=== PATIENT | female | born 1970 | race Caucasian/White ===

== ENCOUNTER → 2018-03-13 08:13 | Outpatient (CLI) | payer BC, SELFPAY ==
--- NOTE | 2018-03-13 08:15 | MM_ITS ---
. MM Dig screening mamm BI w/CAD CAD Screening ORDERING PHYSICIAN : Pedro Mendoza MD PATIENT AGE: 48 years GENDER: Female HISTORY no hormones. No new complaints. Noncontributory family history. COMPARISON mammogram studies January 2014 and August 2013..: TECHNIQUE: Standard CC and MLO images were obtained. R2 CAD reviewed. FINDINGS: Low-density breast with generalized fatty replacement and minimal residual fibroglandular elements bilaterally. No significant change since prior studies. No dominant mass nor suspicious calcifications.. CAD computer review highlights no areas of concern either. A few benign scattered calcifications towards upper-outer quadrant right breast with some ring minor asymmetric fibroglandular elements upper outer quadrant bilaterally again noted and actually have shown slight regression even since 2012 IMPRESSION: Low-density breast with no areas of concern. Bilateral follow-up in one year recommended. BI-RADS Category: 1 Negative RECOMMENDED FOLLOW-UP: 1YR - 1 YEAR FOLLOW-UP (A letter has been sent to the patient regarding results of the study.)
== END ==
PROVIDERS: Family Provider Family Medicine; PCP Family Medicine; Visit Provider Obstetrics & Gynecology
DX: Z12.31 Encounter for screening mammogram for malignant neoplasm of breast (principal)
CPT/HCPCS: 77067

== ENCOUNTER → 2019-03-16 09:08 | Outpatient (CLI) | payer BC, SELFPAY ==
--- NOTE | 2019-03-16 09:30 | MM_ITS ---
MM Dig screening mamm BI w/CAD ORDERING PHYSICIAN : Omayra Miller APRN PATIENT AGE: 49 years GENDER: Female COMPARISON: January 2014, March 2018, August 2013, INDICATION: Routine SCREENING. No hormones. No new complaints. Noncontributory family history TECHNIQUE: Standard CC and MLO images were obtained. R2 CAD reviewed. FINDINGS: Minimal residual fibroglandular elements at the deep upper outer quadrant both right and left breast. No dominant or suspicious mass. No suspicious calcifications. No significant new findings Bilateral follow-up in one year the adequate. . IMPRESSION: Stable bilateral mammogram with no significant new findings. Low-density breast BI-RADS Category: 1 Negative RECOMMENDED FOLLOW-UP: 1YR 1 YEAR FOLLOW-UP (A letter has been sent to the patient regarding results of the study.)
== END ==
PROVIDERS: PCP Nurse Practitioner Family; Visit Provider Nurse Practitioner Family
DX: Z12.31 Encounter for screening mammogram for malignant neoplasm of breast (principal)
CPT/HCPCS: 77067

== ENCOUNTER → 2020-11-24 15:54 | Outpatient (CLI) | payer OTHER, SELFPAY ==
[2020-11-26 10:49] LABS: Covid-19 Nasal PCR Sendout P&C NEGATIVE
== END ==
PROVIDERS: PCP Nurse Practitioner Family; Visit Provider Family Medicine
DX: Z20.822 Contact with and (suspected) exposure to COVID-19 (principal)
CPT/HCPCS: U0004

== ENCOUNTER → 2020-11-29 11:38 | Outpatient (CLI) | payer OTHER, SELFPAY ==
[2020-11-30 11:55] LABS: Covid-19 Nasal PCR Sendout P&C Negative
== END ==
PROVIDERS: PCP Family Medicine; Visit Provider Family Medicine
DX: Z20.822 Contact with and (suspected) exposure to COVID-19 (principal)
CPT/HCPCS: U0004

== ENCOUNTER 2022-02-16 18:35 | Observation (INO) | payer OTHER, SELFPAY ==
[2022-02-16] VITALS (9 sets, daily range): BP systolic 101–146; BP diastolic 59–92; PULSE 57–80; RESP 11–18; TEMP 36.6–37; O2SAT 93–98; BMI 32.9; BMI 35.0; BMI 33.9
--- NOTE | 2022-02-16 18:30 | ECG_ITS ---
APPROVED REPORT Exam: Resting ECG HR:90 bpm ECG Measurements Heart Rate 90 AXES WV 141 P 50 QRSd 85 QRS 42 QT 356 T 40 QTc 403 Conclusion SINUS RHYTHM POSSIBLE LEFT ATRIAL ENLARGEMENT [-0.1mV P-WAVE IN V1/V2] LOW QRS VOLTAGE IN PRECORDIAL LEADS [QRS DEFLECTION < 1.0 mV IN CHEST LEADS] BORDERLINE ECG UNCONFIRMED REPORT Electronically signed by : Michael Yanez MD 02/17/2022 08:09:30
--- NOTE | 2022-02-16 18:43 | XR_ITS ---
PROCEDURE INFORMATION: Exam: XR Chest Exam date and time: 02/16/2022 6:57 PM Age: 51 years old Clinical indication: Sternal or substernal pain; Additional info: Chest pain TECHNIQUE: Imaging protocol: XR of the chest. Views: 1 view. COMPARISON: No relevant prior studies available. FINDINGS: Lungs: Unremarkable. No consolidation. Pleural spaces: Unremarkable. No pleural effusion. No pneumothorax. Heart/Mediastinum: Unremarkable. No cardiomegaly. Bones/joints: Unremarkable. IMPRESSION: No acute findings.
[2022-02-16 18:50] LABS: Basophils # 0.2 K/mm3 (0-0.2); Eosinophils # 0.2 K/mm3 (0.0-0.4); Eosinophils % 2.3 % (0.1-12.0); Hematocrit 43.7 % (37.0-47.0); Lymphocytes % 31.9 % (10-50); Mean Corpuscular Hemoglobin 31.1 pg (27.0-31.2); Mean Corpuscular Volume 97.1 fl (81-99); Mean Platelet Volume 9.3 fl (7.4-10.4); Monocytes # 0.3 K/mm3 (0.1-1.0); Monocytes % 4.8 % (1.7-9.3); Neutrophils # 3.7 K/mm3 (1.8-7.8); Platelet Count 215 K/mm3 (142-424); Red Cell Distribution Width 13.8 % (11.5-17.5); White Blood Count 6.4 K/mm3 (4.8-10.8)
[2022-02-16 18:58] LABS: Anion Gap 10.5 mEq/L (5-15); Blood Urea Nitrogen 16 mg/dl (7-17); Calcium 9.2 mg/dl (8.4-10.2); Carbon Dioxide 26 mmol/L (22.0-30.0); Chloride 107 mmol/L (98-107); Creatinine Clearance Estimated 106 mL/min (50-200); Estimated Glomerular Filt Rate 65 ml/min (>60); GFR (African American) 79 ML/MIN (>60); Glucose 103 mg/dl (74-100); Potassium 3.5 mmoL/L (3.5-5.1); Sodium 140 mmol/L (136-145)
--- NOTE | 2022-02-16 19:15 | HMH.EDCP ---
ED Disposition Condition on Discharge: Good - Critical Care Critical Care Time: No <Danielito Kim - Last Filed: 02/16/22 19:43> <Blake Sena - Last Filed: 02/16/22 21:44> Clinical Impression: Nonspecific chest pain, Anxiety, Obesity (BMI 30.0-34.9), Tobacco use Disposition: Admitted as Observation Instructions: DI for Atypical Chest Pain Referrals: Omayra Miller APRN [Primary Care Provider] - Attestation: On 02/16/22, the high probability of a clinically significant, sudden or life threatening deterioration of the following system(s) required my full and direct attention, intervention and personal management. The time I documented below is in addition to time spent performing reported procedures but includes the following listed in this critical care notation. Medical Decision Making - Medical Records Medical records reviewed: Yes: I reviewed the patient's medical records. - Dav Inquiry Pt receiving controlled substance: No - Lab Data Result diagrams: 02/16/22 18:40 02/16/22 18:40 - Radiology Data #1 Image(s): Chest Image Reviewed: Yes I reviewed the patient's radiology results, Yes I reviewed the patient's radiology image, Yes I have reviewed radiologist's interpretation Preliminary Findings: Normal/NAD - ECG Data Tracing #1 I reviewed this ECG and interpreted as documented below: ECG initial impression date: 02/16/22 ECG initial impression time: 18:30 - Reevaluation(s) Time: 19:44 - CHENG Score for Non-Stemi Age of Patient: 50-59 years old Heart Rate: 70-89 bpm Systolic Blood Pressure: 140-159 mmHg Serum Creatinine: <0.40 mg/dl CHF Killip Class: I-No CHF Other Risk Factors: None Non-Stemi Risk Score: 75 Risk Stratification: 1-108 = Low Risk <Danielito Kim - Last Filed: 02/16/22 19:43> - Lab Data Lab results reviewed: Yes: I reviewed the patient's lab results. Result diagrams: 02/16/22 18:40 02/16/22 18:40 - Physician Consults Physician Consulted: emerson Reason -: Admission <Blake Sena - Last Filed: 02/16/22 21:44> Vital Signs: 02/16/22 18:35 02/16/22 20:18 04/15/22 20:30 Temperature 98.6 F Temperature Source Oral Pulse Rate 57 L 70 Pulse Rate [Radial] 80 Respiratory Rate 16 16 15 Blood Pressure 111/62 122/70 Blood Pressure [Right Arm] 146/92 H Blood Pressure Mean 85 Blood Pressure Mean [Right Arm] 110 Blood Pressure Position [Right Arm] Sitting 02 Sat by Pulse Oximetry 98 93 L 97 Oxygen Delivery Method Room Air Room Air Room Air 02/16/22 21:00 Temperature Temperature Source Pulse Rate 63 Pulse Rate [Radial] Respiratory Rate 16 Blood Pressure 142/86 H Blood Pressure [Right Arm] Blood Pressure Mean 104 Blood Pressure Mean [Right Arm] Blood Pressure Position [Right Arm] 02 Sat by Pulse Oximetry 94 L Oxygen Delivery Method Room Air - Lab Data Lab Results 02/16/22 18:40: WBC 6.4, RBC 4.50, Hgb 14.0, Hct 43.7, MCV 97.1, MCH 31.1, MCHC 32.0, RDW 13.8, Plt Count 215, MPV 9.3, Neut % (Auto) 58.0, Lymph % (Auto) 31.9, [place] % (Auto) 4.8, Eos % (Auto) 2.3, Baso % (Auto) 3.0 H, Neut # (Auto) 3.7, Lymph # (Auto) 2.0, [place] # (Auto) 0.3, Eos # (Auto) 0.2, Baso # (Auto) 0.2 02/16/22 18:40: Sodium 140, Potassium 3.5, Chloride 107, Carbon Dioxide 26, Anion Gap 10.5, BUN 16, Creatinine 0.90, Estimated Creat Clear 106, Estimated GFR 65, Est GFR ( Amer) 79, Glucose 103 H, Calcium 9.2, Troponin I < 0.01 Orders (Tests/Meds): ED MEDICATIONS Discontinued Medications Generic Name Dose Route Start Last Admin Trade Name Freq PRN Reason Stop Dose Admin Aspirin 324 mg 02/16/22 18:43 02/16/22 18:44 Aspirin 81mg Chewable Tablet PO 02/16/22 18:44 324 mg ONCE ONE Administration Morphine Sulfate 4 mg 02/16/22 19:18 02/16/22 19:21 Morphine 4mg/Ml Syringe IV 02/16/22 19:19 4 mg ONCE ONE Administration Nitroglycerin 0.4 mg 02/16/22 21:09 02/16/22 21:10 Nitroglycerin 0.4mg Sl Tabl
[2022-02-16 19:20] LABS: Troponin I < 0.01 ng/ml (0.00-0.034)
--- NOTE | 2022-02-16 19:41 | PC.NURSE ---
PT DENIES PAIN BUT IS ANXIOUS FAMILY AT BS
--- NOTE | 2022-02-16 21:20 | PC.NURSE ---
pt dr norman
[2022-02-16 21:27] LABS: Coronavirus 19, PCR Not Detected (NotDetected); Influenza A, PCR Not Detected (NotDetected); Influenza B, PCR Not Detected (NotDetected)
[2022-02-16 21:30] LABS: Chol/HDL Ratio 4.3 (1-3.5); Cholesterol 195 mg/dl (140-200); HDL Cholesterol 45 mg/dl (40-60); Triglycerides 121 mg/dl (30-150); VLDL Cholesterol 24 mg/dL (0-40)
[2022-02-16 21:41] LABS: Direct LDL Cholesterol 108.01 mg/dL (100-129)
[2022-02-16 21:43] LABS: Troponin I < 0.01 ng/ml (0.00-0.034)
--- NOTE | 2022-02-16 22:10 | PC.NURSE ---
Attempted to call report to 2nd floor, nurse taking report wunable to take at this time and will call back.
--- NOTE | 2022-02-16 22:46 | PC.NURSE ---
pt arrived to floor via wheelchair at this time
[2022-02-17] VITALS: BP 99/52; PULSE 50; PULSE 56; RESP 18; TEMP 36.5; O2SAT 96
[2022-02-17 01:06] LABS: Troponin I < 0.01 ng/ml (0.00-0.034)
[2022-02-17 04:00] VITALS: BP 101/52; PULSE 50; PULSE 55; RESP 18; TEMP 36.4; O2SAT 98
[2022-02-17 05:00] VITALS: BMI 33.9
[2022-02-17 06:34] LABS: Basophils # 0.1 K/mm3 (0-0.2); Basophils % 1.4 % (0.1-2.0); Eosinophils # 0.1 K/mm3 (0.0-0.4); Eosinophils % 2.1 % (0.1-12.0); Hematocrit 42.3 % (37.0-47.0); Hemoglobin 13.3 g/dL (12.2-16.2); Lymphocytes # 2.2 K/mm3 (0.7-4.5); Lymphocytes % 37.9 % (10-50); Mean Corpuscular HGB Conc 31.5 g/dL (31.8-35.4); Mean Corpuscular Volume 98.1 fl (81-99); Mean Platelet Volume 9.7 fl (7.4-10.4); Monocytes # 0.3 K/mm3 (0.1-1.0); Monocytes % 5.6 % (1.7-9.3); Neutrophils # 3.1 K/mm3 (1.8-7.8); Neutrophils % 53.1 % (37.0-80.0); Platelet Count 194 K/mm3 (142-424); Red Cell Distribution Width 13.7 % (11.5-17.5); White Blood Count 5.9 K/mm3 (4.8-10.8)
[2022-02-17 06:40] LABS: Chloride 107 mmol/L (98-107); Sodium 139 mmol/L (136-145)
[2022-02-17 06:41] LABS: Potassium 3.9 mmoL/L (3.5-5.1)
[2022-02-17 06:43] LABS: Blood Urea Nitrogen 12 mg/dl (7-17); Creatinine Clearance Estimated 123 mL/min (50-200); Estimated Glomerular Filt Rate 75 ml/min (>60); GFR (African American) 91 ML/MIN (>60)
[2022-02-17 06:44] LABS: Anion Gap 4.9 mEq/L (5-15); Calcium 8.2 mg/dl (8.4-10.2); Carbon Dioxide 31 mmol/L (22.0-30.0); Glucose 87 mg/dl (74-100); Magnesium 2.1 mg/dl (1.6-2.3)
[2022-02-17 08:00] VITALS: BP 103/54; PULSE 50; PULSE 54; RESP 14; TEMP 36.6; O2SAT 97
--- NOTE | 2022-02-17 08:50 | HMH.HPDC ---
<Eda Farah - Last Filed: 02/17/22 08:58> General - General Admission date:: 02/16/22 Discharge date: 02/17/22 *Admission Date: 02/17/22 *Chief complaint: chest pain *History of present illness: Ms Almaraz is a 51-year-old fairly healthy female who began having heartburn a few days ago. Yesterday she began having pressure across her chest and some numbness and tingling down her right arm. She states she just felt weird and decided to come to the emergency room for evaluation. She was given 4 baby aspirin, morphine, and nitro in the emergency room. She states she is not having any sharp chest pain, but does still have a dull ache under her left arm on the left side of her chest. She was admitted to rule out NH. [facility] History I have reviewed the patient's past medical history: Yes Medical History: Reports:: Gastroesophageal Reflux Disease(GERD) Denies:: Cancer, Diabetes Mellitus Type 1, Diabetes Mellitus Type 2, MRSA *Have you ever received a pneumonia vaccine?: No *Have you received a flu vaccine this season?: Yes Other Surgeries: Yes: Amputation: No Fractures: No - *Social History Last grade of school completed: High school graduate Smoking Status: Current some day smoker Tobacco Type: cigarettes # Packs/Day (cigarettes): 1 Alcohol Intake: current Alcohol Intake Frequency:: holidays/special occasions only Substance Use Type: denies use *Occupational Status:: unemployed Housing: house Household Members: spouse, children *Travel in the last 8 weeks: None Family Hx:: Diabetes 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 Review of Systems - Constitutional Denies chills, Denies fever(s) - Eyes Denies blurry vision, Denies double vision - ENT Denies nasal congestion, Denies sore throat - *Cardiovascular Reports chest pain, Denies shortness of breath, Denies leg swelling - *Respiratory Denies cough, Denies shortness of breath - *Gastrointestinal Denies abdominal pain, Denies loose stools, Denies nausea, Denies vomiting - *Genitourinary Denies difficulty urinating, Denies painful urination - *Musculoskeletal Denies joint pain - *Neurologic Reports radiating pain (Down right arm), Denies headache(s) Exam Vital signs and Labs for Last 24 Hours: Temp Pulse Resp BP Pulse Ox 97.9 F 50 L 14 103/54 L 97 02/17/22 08:00 02/17/22 08:00 02/17/22 08:00 02/17/22 08:00 02/17/22 08:00 Laboratory Results - last 24 hr 02/16/22 18:40: WBC 6.4, RBC 4.50, Hgb 14.0, Hct 43.7, MCV 97.1, MCH 31.1, MCHC 32.0, RDW 13.8, Plt Count 215, MPV 9.3, Neut % (Auto) 58.0, Lymph % (Auto) 31.9, [place] % (Auto) 4.8, Eos % (Auto) 2.3, Baso % (Auto) 3.0 H, Neut # (Auto) 3.7, Lymph # (Auto) 2.0, [place] # (Auto) 0.3, Eos # (Auto) 0.2, Baso # (Auto) 0.2 02/16/22 18:40: Sodium 140, Potassium 3.5, Chloride 107, Carbon Dioxide 26, Anion Gap 10.5, BUN 16, Creatinine 0.90, Estimated Creat Clear 106, Estimated GFR 65, Est GFR ( Amer) 79, Glucose 103 H, Calcium 9.2, Troponin I < 0.01 02/16/22 18:40: Triglycerides 121, Cholesterol 195, LDL Cholesterol Direct 108.01, VLDL Cholesterol 24, HDL Cholesterol 45, Cholesterol/HDL Ratio 4.3 H 02/16/22 21:08: Troponin I < 0.01 02/16/22 21:20: SARS-CoV-2 (PCR) Not detected, Influenza A Untype (PCR) Not detected, Influenza Type B (PCR) Not detected 02/17/22 00:35: Troponin I < 0.01 02/17/22 06:10: WBC 5.9, RBC 4.30, Hgb 13.3, Hct 42.3, MCV 98.1, MCH 31.0, MCHC 31.5 L, RDW 13.7, Plt Count 194, MPV 9.7, Neut % (Auto) 53.1, Lymph % (Auto) 37.9, [place] % (Auto) 5.6, Eos % (Auto) 2.1, Baso % (Auto) 1.4, Neut # (Auto) 3.1, Lymph # (Auto) 2.2, [place] # (Auto) 0.3, Eos # (Auto) 0.1, Baso # (Auto) 0.1 02/17/22 06:10: Sodium 139, Potassium 3.9, Chloride 107, Carbon Dioxide 31 H, Anion Gap 4.9 L, BUN 12, Creatinine 0.80, Estimated Creat Clear 123, Estimated GFR 75, Est GFR ( Amer) 91, Glucose 87, Calcium 8.2 L, Magnesium 2.1 I & O for Last 24 hours: Intake & Output 02/14/22 02/15/22 02/16/22 02/17/22
--- NOTE | 2022-02-17 09:16 | HMH.PHAINT ---
DISCHARGE MEDICATION COUNSELING PROVIDED. DISCUSSED THE ISOSORBIDE (WATCH FOR DIZZINESS/LIGHTHEADEDNESS, HEADACHE) AND OMEPRAZOLE. PATIENT ENDORSED NO QUESTIONS AT THIS TIME.
--- NOTE | 2022-02-19 15:40 | CARE MANAGER ---
Addendum entered by Margarita Kent RN 02/19/22 15:50: Patient returned phone call. She just left Aga Marvin APRN's office. She states they are going to schedule her for a stress test. She quit taking the Isosorbide Mononitrate due to causing headache and Ms. Marvin is prescribing her an anti-inflammatory to see if that helps. She doesn't have the pain down her arm, but does have some soreness in her chest. She denies any questions or concerns. GAY Mohr Original Note: Attempted to contact patient and left VM message. GAY Mohr
== END 2022-02-17 09:28 | disposition home or self-care (01) ==
LOC: ER 21:44 → 2ND 22:04
PROVIDERS: Emergency Medicine; Admitting Provider Family Medicine; Emergency Provider Emergency Medicine; PCP Nurse Practitioner Family; Visit Provider Family Medicine
DX: R07.9 Chest pain, unspecified (principal); K21.9 Gastro-esophageal reflux disease without esophagitis; F17.210 Nicotine dependence, cigarettes, uncomplicated; M94.0 Chondrocostal junction syndrome [Tietze]
CPT/HCPCS: 36415; 71045; 80048; 80061; 83735; 84484; 85025; 93005; 96375; 99285; C9803; G0378; J2405; U0003; U0005

== ENCOUNTER 2022-02-23 13:42 | Emergency (ER) | payer OTHER, SELFPAY ==
[2022-02-23] VITALS (11 sets, daily range): BP systolic 102–135; BP diastolic 53–80; PULSE 51–65; RESP 13–20; TEMP 36.7–36.8; O2SAT 96–100; BMI 34.3
--- NOTE | 2022-02-23 13:40 | ECG_ITS ---
APPROVED REPORT Exam: Resting ECG HR:52 bpm ECG Measurements Heart Rate 52 AXES WI 129 P 35 QRSd 89 QRS 42 QT 447 T 28 QTc 427 Conclusion SINUS BRADYCARDIA LOW QRS VOLTAGE IN PRECORDIAL LEADS [QRS DEFLECTION < 1.0 mV IN CHEST LEADS] BORDERLINE ECG UNCONFIRMED REPORT Electronically signed by : Michael Yanez MD 02/24/2022 12:11:04
--- NOTE | 2022-02-23 13:49 | XR_ITS ---
FINAL REPORT CLINICAL HISTORY: chest pain COMPARISON: February 16, 2022 FINDINGS: SINGLE-VIEW CHEST The heart size is normal. The mediastinum is normal. The lungs are clear. There is no pneumothorax. IMPRESSION: No acute cardiopulmonary process. Reviewed, Interpreted and Dictated by Benjamin Siddiqui III, MD Transcribed by Lucia Montenegro Authenticated by Benjamin Siddiqui III, MD on 02/23/2022 02:27:[address] [facility]
[2022-02-23 14:07] LABS: Chloride 110 mmol/L (98-107); Sodium 140 mmol/L (136-145)
[2022-02-23 14:08] LABS: Potassium 4.1 mmoL/L (3.5-5.1)
[2022-02-23 14:10] LABS: Blood Urea Nitrogen 16 mg/dl (7-17); Creatinine Clearance Estimated 124 mL/min (50-200); Estimated Glomerular Filt Rate 75 ml/min (>60); GFR (African American) 91 ML/MIN (>60)
[2022-02-23 14:11] LABS: Anion Gap 8.1 mEq/L (5-15); Calcium 8.1 mg/dl (8.4-10.2); Carbon Dioxide 26 mmol/L (22.0-30.0); Glucose 85 mg/dl (74-100)
[2022-02-23 14:12] LABS: Basophils % 0.8 % (0.1-2.0); Eosinophils # 0.1 K/mm3 (0.0-0.4); Eosinophils % 1.8 % (0.1-12.0); Hemoglobin 13.4 g/dL (12.2-16.2); Lymphocytes # 1.7 K/mm3 (0.7-4.5); Lymphocytes % 31.3 % (10-50); Mean Corpuscular HGB Conc 32.6 g/dL (31.8-35.4); Mean Corpuscular Hemoglobin 30.6 pg (27.0-31.2); Mean Corpuscular Volume 93.8 fl (81-99); Mean Platelet Volume 10.5 fl (7.4-10.4); Monocytes # 0.3 K/mm3 (0.1-1.0); Neutrophils # 3.3 K/mm3 (1.8-7.8); Platelet Count 202 K/mm3 (142-424); Red Blood Count 4.37 M/mm3 (4.20-5.40); Red Cell Distribution Width 13.6 % (11.5-17.5); White Blood Count 5.4 K/mm3 (4.8-10.8)
--- NOTE | 2022-02-23 14:20 | PC.NURSE ---
rad notified if CT head order
--- NOTE | 2022-02-23 14:22 | CT_ITS ---
FINAL REPORT CLINICAL HISTORY: RUE tingling, HEADACHE FINDINGS: Axial images of the head were obtained without contrast. Coronal reformatted images were also obtained.This study was performed with techniques to keep radiation doses as low as reasonably achievable (ALARA). Individualized dose reduction techniques using automated exposure control or adjustment of mA and/or kV according to the patient's size were employed. There is no evidence of intracranial hemorrhage or mass. The ventricular size is within normal limits. There is no evidence of shift of the midline structures. No abnormal extra axial fluid collection is identified. No skull abnormality is seen on the bone window images. IMPRESSION: No acute intracranial abnormality. Reviewed, Interpreted and Dictated by Benjamin Siddiqui III, MD Transcribed by Servando Morrison Authenticated by Benjamin Siddiqui III, MD on 02/23/2022 03:15:[address] [facility]
[2022-02-23 14:41] LABS: Troponin I < 0.01 ng/ml (0.00-0.034)
--- NOTE | 2022-02-23 15:04 | PC.NURSE ---
rounded on pt at time, pt states no needs at this time, pt family at BS.
--- NOTE | 2022-02-23 17:07 | HMH.EDGENADL ---
ED Disposition Clinical Impression: Chest pain Qualifiers: Chest pain type: unspecified Qualified Code(s): R07.9 - Chest pain, unspecified Disposition: Home, Self-Care Condition on Discharge: Good Instructions: DI for Atypical Chest Pain Additional Instructions: Do not take Aleve. Continue other medications. Stress test and echocardiogram on Saturday as scheduled. Additional instructions for CHEST PAIN: See your physician as soon as possible for further evaluation. Return immediately if worsening chest pain, vomiting, shortness of breath, fever, coughing of blood. Referrals: Omayra Miller APRN [Primary Care Provider] - - Critical Care Critical Care Time: No Attestation: On 02/23/22, the high probability of a clinically significant, sudden or life threatening deterioration of the following system(s) required my full and direct attention, intervention and personal management. The time I documented below is in addition to time spent performing reported procedures but includes the following listed in this critical care notation. Medical Decision Making - Dav Inquiry Pt receiving controlled substance: No Vital Signs: 02/23/22 13:47 02/23/22 14:00 02/23/22 14:31 Temperature 98.0 F Temperature Source Oral Pulse Rate 56 L 55 L Pulse Rate [Left Radial] 65 Respiratory Rate 20 14 16 Blood Pressure 134/79 135/70 Blood Pressure [Left Arm] 131/80 Blood Pressure Mean 97 97 Blood Pressure Mean [Left Arm] 97 Blood Pressure Source [Left Arm] Automatic Cuff Blood Pressure Position [Left Arm] Sitting 02 Sat by Pulse Oximetry 97 98 99 Oxygen Delivery Method Oxygen Flow Rate (LPM) 02/23/22 15:00 02/23/22 15:30 02/23/22 16:00 Temperature Temperature Source Pulse Rate 55 L 54 L 56 L Pulse Rate [Left Radial] Respiratory Rate 14 13 15 Blood Pressure 106/56 L 110/59 L 102/56 L Blood Pressure [Left Arm] Blood Pressure Mean 76 75 69 Blood Pressure Mean [Left Arm] Blood Pressure Source [Left Arm] Blood Pressure Position [Left Arm] 02 Sat by Pulse Oximetry 98 99 96 Oxygen Delivery Method Nasal Cannula Nasal Cannula Oxygen Flow Rate (LPM) 2 2 02/23/22 16:30 02/23/22 17:00 02/23/22 17:30 Temperature Temperature Source Pulse Rate 58 L 62 61 Pulse Rate [Left Radial] Respiratory Rate 14 14 17 Blood Pressure 110/53 L 122/63 121/71 Blood Pressure [Left Arm] Blood Pressure Mean 67 75 87 Blood Pressure Mean [Left Arm] Blood Pressure Source [Left Arm] Blood Pressure Position [Left Arm] 02 Sat by Pulse Oximetry 99 100 98 Oxygen Delivery Method Oxygen Flow Rate (LPM) 02/23/22 18:00 Temperature Temperature Source Pulse Rate 52 L Pulse Rate [Left Radial] Respiratory Rate 16 Blood Pressure 112/63 Blood Pressure [Left Arm] Blood Pressure Mean 81 Blood Pressure Mean [Left Arm] Blood Pressure Source [Left Arm] Blood Pressure Position [Left Arm] 02 Sat by Pulse Oximetry 99 Oxygen Delivery Method Oxygen Flow Rate (LPM) - Lab Data Lab Results 02/23/22 13:49: WBC 5.4, RBC 4.37, Hgb 13.4, Hct 41.0, MCV 93.8, MCH 30.6, MCHC 32.6, RDW 13.6, Plt Count 202, MPV 10.5 H, Neut % (Auto) 61.0, Lymph % (Auto) 31.3, [place] % (Auto) 5.0, Eos % (Auto) 1.8, Baso % (Auto) 0.8, Neut # (Auto) 3.3, Lymph # (Auto) 1.7, [place] # (Auto) 0.3, Eos # (Auto) 0.1, Baso # (Auto) 0.0 02/23/22 13:49: Sodium 140, Potassium 4.1, Chloride 110 H, Carbon Dioxide 26, Anion Gap 8.1, BUN 16, Creatinine 0.80, Estimated Creat Clear 124, Estimated GFR 75, Est GFR ( Amer) 91, Glucose 85, Calcium 8.1 L, Troponin I < 0.01 02/23/22 17:00: Troponin I < 0.01 Result diagrams: 02/23/22 13:49 02/23/22 13:49 Orders (Tests/Meds): ED MEDICATIONS Generic Name Dose Route Start Last Admin Trade Name Freq PRN Reason Stop Dose Admin Sodium Chloride 10 ml 02/23/22 13:48 Sodium Chloride 0.9% 10ml Flush Syringe IV 03/25/22 13:47 NEEDED PRN Maintain IV S
[2022-02-23 17:35] LABS: Troponin I < 0.01 ng/ml (0.00-0.034)
--- NOTE | 2022-02-23 18:32 | PC.NURSE ---
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 pina per JUAN MIGUEL CANCINO request
--- NOTE | 2022-02-23 18:33 | PC.NURSE ---
JUAN MIGUEL CANCINO speaking [facility] dr. pina.
== END 2022-02-23 18:56 | disposition home or self-care (01) ==
PROVIDERS: Emergency Provider Emergency Medicine; PCP Nurse Practitioner Family
DX: R07.9 Chest pain, unspecified (principal); K21.9 Gastro-esophageal reflux disease without esophagitis; R51.9 Headache, unspecified; Z87.891 Personal history of nicotine dependence
CPT/HCPCS: 70450; 71045; 80048; 84484; 85025; 93005; 99284

== ENCOUNTER → 2022-02-26 07:08 | Outpatient (CLI) | payer OTHER, SELFPAY ==
--- NOTE | 2022-02-26 07:08 | NM_ITS ---
APPROVED REPORT Exam: Nuclear Stress Test Indication: Chest pain, Palpitations, Former tobacco use Patient Location: Outpatient Stress Tech: Geri Lang NE Tech:Petrona Tarango, ARRT, RT (R)(N) Ht: 5 ft 6 in Wt: 211 lbs Bra Size: 40D HR: 63 bpm BP: 121/54 mmHg BSA: 2.05 m2 BMI: 34.0 History: Chest pain, Palpitations, Former tobacco use Procedure: Patient exercised on Kareem protocol 7:30 minutes and sec, resting heart rate 63 bpm, resting blood pressure 121/54 mmHg, with exercise maximum heart rate achived was 159 bpm which is 96 % of the maximum predicted heart rate and blood pressure was 128/82 mmHg. Test was stopped due to SOA. Patient denied any complaint of chest pain. Patient has good exercise capacity, achieved 10.1 METs of workload on treadmill, the blood pressure response to exercise was Adequate. Electrocardiogram There is less than 1.[address] segment depression noted from the baseline EKG. The EKG portion of the exercise Myoview is negative for ischemia. Cardiac Stress and Resting SPECT Images: Cardiac Stress and Resting SPECT images were obtained using technetium 99m Myoview 31.9 mCi stress and 10.69 mCi at rest. Gated SPECT for analysis of segmental wall motion and calculation of the ejection fraction also done. Prone images were also obtained. Cardiac stress and resting SPECT may show mild fixed defect in the anterior wall which is likely secondary to soft tissue attenuation, however there is transient ischemic dilatation of the left ventricle seen, raising the presence of balanced ischemia. Computer derived ejection fraction is 56% with no regional wall motion abnormality, right ventricle is normal size and contractility. Conclusion: 1. The EKG portion of the exercise Myoview is negative for ischemia, patient has good exercise capacity achieved 10.1 METs of workload on treadmill, the blood pressure response to exercise was adequate, there was no exercise-induced chest discomfort. 2. No scintigraphic evidence of reversible ischemia seen, compared to ejection fraction 56% with no regional wall motion abnormality, however there is transient ischemic dilatation of the left ventricle seen, raising the presence of balanced ischemia. Computer derived ejection fraction 56% with no regional wall motion abnormality, right ventricle is normal size and contractility. 3. Abnormal exercise Myoview study. Electronically signed by : Stefan Smith MD 02/26/2022 20:14:10
--- NOTE | 2022-02-26 08:21 | CA_ITS ---
APPROVED REPORT EXAM: Comprehensive 2D, Doppler, and color-flow Echocardiogram Pneumatic Jack Operator: Holley Cuellar CRT Ht: 5 ft 6 in Wt: 216lbs BSA: 2.07 BP: 103/43 mmHg Indications: Chest Pain,smoker 2D Dimensions LVOT 1.84 cm (M/F) 1.5-2.5 LA Volume 24.60 mL LA Volume Index 11.90 mL/m2 (M/F) 16-34 M-Mode Dimensions RVDd 2.34 cm (0.9-2.6) LA Diam 3.16 cm (1.9-4.0) LVDd 4.87 cm (3.5-5.7) Ao Diam 3.61 cm (2.0-3.7) LVDs 3.20 cm (3.5-5.7) IVSd 1.25 cm (0.6-1.1) PWd 0.72 cm (0.6-1.1) EF (Teich) 63.10% FS 34.30% EDV (Teich) 111.20 mL TAPSE 1.54 (<1.7) ESV (Teich) 41.00 mL LV Diastology E Decel Time 170.00 (160-240 msec) E/A Ratio 1.14 MED E' 9.70 (< 7 cm/sec) MED A' 10.00 cm/s E'/MED E' Ratio 7.07 (>14) LAT E' 9.90 (<10 cm/sec) LAT A' 7.80 cm/s E/LAT E' Ratio 6.93 (>14) Aortic Valve AO Peak GR. 4.00 mmHg Mitral Valve MV E Max Jeff. 69.00 (40-130 cm/s) MV A Velocity 60.00 (40-130 cm/s) E/A Ratio 1.14 MV Decel. Time 170.00 (160-240 ms) MV PHT 50.00 ms Pulmonary Valve PV Peak Velocity 137.00 (50-150 cm/s) Tricuspid Valve TR P. Velocity 180.00 cm/s RAP Estimate 10.00 mmHg RVSP 22.90 mmHg Left Ventricle Left atrium normal size, left ventricle is normal size, there is no concentric left ventricular hypertrophy, estimated ejection fraction 55% with no regional wall motion abnormality, diastolic parameters are within normal range. Right Ventricle Right atrium and right ventricle are normal size and contractility. Aortic Valve Aortic valve is grossly normal, there is no aortic stenosis or aortic insufficiency. Mitral Valve Mitral valve grossly normal, there is trace mitral regurgitation. Tricuspid Valve Tricuspid grossly normal, there is trace tricuspid regurgitation, tricuspid regurgitation jet velocity is inadequate for calculation of the right ventricular systolic pressure. Pulmonic Valve Pulmonic valve is poorly visualized. Great Vessels Aortic root is normal size. Inferior vena cava normal size with normal inspiratory collapse. Pericardium No significant pericardial effusion noted. Conclusion 1. Normal left ventricular size, preserved left ventricular systolic function, visually estimated ejection fraction 55% with no regional wall motion abnormality, diastolic parameters are within normal range. 2. Trace mitral and tricuspid regurgitation. 3. No significant pericardial effusion noted. 4. Inferior vena cava normal size with normal inspiratory collapse. Electronically signed by : Stefan Smith MD 02/26/2022 21:11:59
--- NOTE | 2022-02-26 09:43 | HMH.ITSHM ---
Current Home Medications as stated by this patient Lori Almaraz or residential sales representative. []ASA OMEPRAZOLE NAPROXEN
--- NOTE | 2022-02-26 09:50 | CA_ITS ---
APPROVED REPORT Exam: Exercise Treadmill Technologist: Geri Tavarez, Ht: 5 ft 6 in Wt: 216 lbs BSA: 2.07 m2 HR: 63 bpm BP: 121/54 mmHg Medical History Medications: Omeprazole,,,,, Aspirin,,,,, Aleve,,,,, Stress Test Details Test: Kareem HR Resting HR: 68 bpm Max Heart Rate (APMHR): 166.623895 bpm Max HR Achieved: 159 bpm Target HR (85% APMHR): 141.699868 bpm % of APMHR: 95.78 Recovery HR: 90 bpm BP Resting BP: 116/64 mmHg Max BP: 150/88 mmHg Recovery BP: 137.0/53.0 mmHg ECG Clinical Exercise duration: 07:31 min Highest Stage Achieved: III Exercise capacity: 10.1 METs Stress ECG Conclusion Test stopped due to: SOA Symptoms: SOA w/ exercise. no chest pain Arrhythmias/Ectopy: none Test Summary REST . . . . . . . Sitting REST . . . . . . . Standing REST 05:31 0.0 0.0 68 . 116/ 64 . . Stage 1 01:00 10.0 1.7 93 . . . . Stage 1 02:00 10.0 1.7 103 . . . . Stage 1 03:00 10.0 1.7 109 . 120/ 78 . . Stage 2 01:00 12.0 2.5 120 . . . . Stage 2 02:00 12.0 2.5 132 . . . . Stage 2 03:00 12.0 2.5 140 . 128/ 82 . . Stage 3 01:00 14.0 3.4 154 . . . . Stage 3 01:31 14.0 3.4 158 . . . Stop exercise at 07:31 RECOVERY 01:00 0.0 0.0 124 . 150/ 88 . . RECOVERY 02:00 0.0 0.0 106 . 150/ 88 . . RECOVERY 03:00 0.0 0.0 89 . 134/ 55 . . RECOVERY 04:00 0.0 0.0 90 . 134/ 55 . . RECOVERY 04:29 0.0 0.0 85 . 137/ 53 . . Electronically signed by : Stefan Smith MD 02/26/2022 20:10:28
== END ==
PROVIDERS: PCP Nurse Practitioner Family; Visit Provider Physician Assistant
DX: R07.89 Other chest pain (principal); K21.9 Gastro-esophageal reflux disease without esophagitis; E66.9 Obesity, unspecified; Z68.34 Body mass index [BMI] 34.0-34.9, adult; Z72.0 Tobacco use
CPT/HCPCS: 78452; 93017; 93306; A9502

== ENCOUNTER 2022-03-09 13:27 | Emergency (ER) | payer OTHER, SELFPAY ==
[2022-03-09] VITALS (7 sets, daily range): BP systolic 93–141; BP diastolic 50–82; PULSE 51–80; RESP 14–18; TEMP 36.6–36.7; O2SAT 97–99; BMI 41.9
--- NOTE | 2022-03-09 13:27 | ECG_ITS ---
APPROVED REPORT Exam: Resting ECG HR:59 bpm ECG Measurements Heart Rate 59 AXES OK 140 P 65 QRSd 85 QRS 63 QT 424 T 50 QTc 423 Conclusion SINUS BRADYCARDIA NONSPECIFIC T-WAVE ABNORMALITY BORDERLINE ECG UNCONFIRMED REPORT Electronically signed by : Michael Yanez MD 03/10/2022 09:04:38
--- NOTE | 2022-03-09 13:55 | XR_ITS ---
FINAL REPORT CLINICAL HISTORY: CHEST PAIN FINDINGS: A portable view of the chest was obtained. Comparison is made to a prior exam dated February 23, 2022. Cardiac and mediastinal silhouettes are within normal limits. There are low lung volumes. There is left basilar opacity, likely atelectasis. There is no pleural effusion or pneumothorax. IMPRESSION: Left basilar opacity, likely atelectasis. Reviewed, Interpreted and Dictated by Ashanti Cortes MD Transcribed by Servando Morrison Authenticated by Ashanti Cortes MD on 03/09/2022 02:55:17 PM [facility]
[2022-03-09 14:17] LABS: Chloride 106 mmol/L (98-107); Potassium 3.5 mmoL/L (3.5-5.1); Sodium 141 mmol/L (136-145)
[2022-03-09 14:20] LABS: Anion Gap 8.5 mEq/L (5-15); Blood Urea Nitrogen 13 mg/dl (7-17); Calcium 9.5 mg/dl (8.4-10.2); Carbon Dioxide 30 mmol/L (22.0-30.0); Creatinine Clearance Estimated 75 mL/min (50-200); Estimated Glomerular Filt Rate 75 ml/min (>60); GFR (African American) 90 ML/MIN (>60); Glucose 99 mg/dl (74-100)
--- NOTE | 2022-03-09 14:30 | HMH.EDGENADL ---
ED Disposition Clinical Impression: Atypical chest pain Disposition: Home, Self-Care Condition on Discharge: Good Instructions: DI for Atypical Chest Pain Additional Instructions: See Dr. Saxena in his office at 9:30 AM on 03/12/2022. Additional instructions for CHEST PAIN: Return immediately if worsening chest pain, vomiting, shortness of breath, fever, coughing of blood. Referrals: Omayra Miller APRN [Primary Care Provider] - - Critical Care Critical Care Time: No Attestation: On 03/09/22, the high probability of a clinically significant, sudden or life threatening deterioration of the following system(s) required my full and direct attention, intervention and personal management. The time I documented below is in addition to time spent performing reported procedures but includes the following listed in this critical care notation. Medical Decision Making - Medical Records Medical records reviewed: Yes: I reviewed the patient's medical records. MR Comment: Reviewed discharge summary 02/16/2022 admission. Reviewed cardiology office note 03/01/2022 with associated echocardiogram and stress test results (see below). - Dav Inquiry Pt receiving controlled substance: No Vital Signs: 03/09/22 13:30 03/09/22 14:00 03/09/22 14:30 Temperature 98.0 F Temperature Source Oral Pulse Rate 59 L 51 L Pulse Rate [Left Radial] 80 Respiratory Rate 18 18 18 Blood Pressure 110/65 100/50 L Blood Pressure [Right Arm] 141/82 H Blood Pressure Mean Blood Pressure Mean [Right Arm] 101 Blood Pressure Source Automatic Cuff Automatic Cuff Blood Pressure Position Sitting Sitting 02 Sat by Pulse Oximetry 98 97 98 Oxygen Delivery Method Room Air Room Air Room Air 03/09/22 15:00 03/09/22 15:30 03/09/22 16:00 Temperature Temperature Source Pulse Rate 52 L 58 L 52 L Pulse Rate [Left Radial] Respiratory Rate 18 16 14 Blood Pressure 103/67 L 93/52 L 94/58 L Blood Pressure [Right Arm] Blood Pressure Mean 70 72 Blood Pressure Mean [Right Arm] Blood Pressure Source Automatic Cuff Blood Pressure Position Sitting 02 Sat by Pulse Oximetry 97 98 99 Oxygen Delivery Method Room Air Room Air Room Air - Lab Data Lab Results 03/09/22 13:37: WBC 5.1, RBC 4.61, Hgb 14.2, Hct 42.6, MCV 92.5, MCH 30.7, MCHC 33.2, RDW 13.5, Plt Count 219, MPV 9.7, Neut % (Auto) 57.8, Lymph % (Auto) 31.2, Deuel % (Auto) 6.1, Eos % (Auto) 1.6, Baso % (Auto) 3.4 H, Neut # (Auto) 3.0, Lymph # (Auto) 1.6, Deuel # (Auto) 0.3, Eos # (Auto) 0.1, Baso # (Auto) 0.2 03/09/22 13:37: Sodium 141, Potassium 3.5, Chloride 106, Carbon Dioxide 30, Anion Gap 8.5, BUN 13, Creatinine 0.80, Estimated Creat Clear 75, Estimated GFR 75, Est GFR ( Amer) 90, Glucose 99, Calcium 9.5, Troponin I < 0.01 03/09/22 16:40: Troponin I < 0.01 Result diagrams: 03/09/22 13:37 03/09/22 13:37 Orders (Tests/Meds): ED MEDICATIONS Generic Name Dose Route Start Last Admin Trade Name Freq PRN Reason Stop Dose Admin Sodium Chloride 10 ml 03/09/22 13:55 Sodium Chloride 0.9% 10ml Flush Syringe IV 04/08/22 13:54 NEEDED PRN Maintain IV Site Discontinued Medications Generic Name Dose Route Start Last Admin Trade Name Freq PRN Reason Stop Dose Admin Aspirin 243 mg 03/09/22 13:55 03/09/22 14:03 Aspirin 81mg Chewable Tablet PO 03/09/22 13:56 243 mg ONCE ONE Administration Bisoprolol Fumarate 5 mg 03/09/22 16:04 03/09/22 16:16 Bisoprolol 5mg Tablet PO 03/09/22 16:05 Not Given ONCE ONE ORDERS Category Date Time Status Consult to Cardiology [CONS] Routine Cons 03/09/22 14:55 Active Troponin I Q3H Lab 03/09/22 20:00 Ordered ECHO showed: Conclusion 1.? Normal left ventricular size, preserved left ventricular systolic function, visually estimated ejection fraction 55% with no regional wall motion abnormality, diastolic parameters are within normal range. 2.? Trace mitral and
[2022-03-09 14:33] LABS: Basophils # 0.2 K/mm3 (0-0.2); Basophils % 3.4 % (0.1-2.0); Eosinophils # 0.1 K/mm3 (0.0-0.4); Eosinophils % 1.6 % (0.1-12.0); Hematocrit 42.6 % (37.0-47.0); Hemoglobin 14.2 g/dL (12.2-16.2); Lymphocytes # 1.6 K/mm3 (0.7-4.5); Lymphocytes % 31.2 % (10-50); Mean Corpuscular HGB Conc 33.2 g/dL (31.8-35.4); Mean Corpuscular Hemoglobin 30.7 pg (27.0-31.2); Mean Corpuscular Volume 92.5 fl (81-99); Mean Platelet Volume 9.7 fl (7.4-10.4); Monocytes # 0.3 K/mm3 (0.1-1.0); Monocytes % 6.1 % (1.7-9.3); Neutrophils % 57.8 % (37.0-80.0); Platelet Count 219 K/mm3 (142-424); Red Blood Count 4.61 M/mm3 (4.20-5.40); Red Cell Distribution Width 13.5 % (11.5-17.5); White Blood Count 5.1 K/mm3 (4.8-10.8)
[2022-03-09 15:02] LABS: Troponin I < 0.01 ng/ml (0.00-0.034)
--- NOTE | 2022-03-09 15:25 | PC.NURSE ---
checked on pt at this time, warm blanket given will continue to monitor
--- NOTE | 2022-03-09 16:05 | PC.NURSE ---
JUAN MIGUEL CANCINO spoke with Dr. Saxena at this time
[2022-03-09 17:22] LABS: Troponin I < 0.01 ng/ml (0.00-0.034)
== END 2022-03-09 17:39 | disposition home or self-care (01) ==
PROVIDERS: Emergency Provider Emergency Medicine; PCP Nurse Practitioner Family
DX: R07.89 Other chest pain (principal); K21.9 Gastro-esophageal reflux disease without esophagitis; F17.210 Nicotine dependence, cigarettes, uncomplicated
CPT/HCPCS: 71045; 80048; 84484; 85025; 93005; 99283

== ENCOUNTER 2022-03-12 10:32 | Observation (INO) | payer OTHER, SELFPAY ==
[2022-03-12] VITALS (21 sets, daily range): BP systolic 92–128; BP diastolic 47–67; PULSE 39–66; RESP 13–18; TEMP 36.7–36.9; O2SAT 91–100; BMI 34.7; BMI 34.4
--- NOTE | 2022-03-12 10:38 | HMH.EDCP ---
ED Disposition Clinical Impression: Unstable angina Disposition: Admitted as Observation Condition on Discharge: Serious Referrals: Provider,Referral, [Primary Care Provider] - - Critical Care Critical Care Time: No Attestation: On 03/12/22, the high probability of a clinically significant, sudden or life threatening deterioration of the following system(s) required my full and direct attention, intervention and personal management. The time I documented below is in addition to time spent performing reported procedures but includes the following listed in this critical care notation. Medical Decision Making - Medical Records Medical records reviewed: Yes: I reviewed the patient's medical records. - Dav Inquiry Pt receiving controlled substance: No Vital Signs: 03/12/22 10:32 03/12/22 11:07 Temperature 98.4 F Temperature Source Oral Pulse Rate 57 L 52 L Pulse Rate [Right Radial] 61 Respiratory Rate 18 18 Blood Pressure 128/57 L 120/58 L Blood Pressure [Right Arm] 128/57 L Blood Pressure Mean [Right Arm] 80 Blood Pressure Source [Right Arm] Automatic Cuff Blood Pressure Position Sitting Sitting Blood Pressure Position [Right Arm] Sitting 02 Sat by Pulse Oximetry 98 98 Oxygen Delivery Method Room Air Room Air - Lab Data Lab results reviewed: Yes: I reviewed the patient's lab results. Lab Results 03/12/22 10:35: WBC 5.7, RBC 4.32, Hgb 13.4, Hct 40.4, MCV 93.6, MCH 31.0, MCHC 33.1, RDW 13.4, Plt Count 246, MPV 9.4, Neut % (Auto) 58.7, Lymph % (Auto) 33.8, Douglas % (Auto) 4.9, Eos % (Auto) 1.4, Baso % (Auto) 1.2, Neut # (Auto) 3.3, Lymph # (Auto) 1.9, Douglas # (Auto) 0.3, Eos # (Auto) 0.1, Baso # (Auto) 0.1 03/12/22 10:35: Sodium 140, Potassium 3.6, Chloride 106, Carbon Dioxide 29, Anion Gap 8.6, BUN 15, Creatinine 0.70, Estimated Creat Clear 141, Estimated GFR 87, Est GFR ( Amer) 106, Glucose 103 H, Calcium 9.1, Troponin I < 0.01 Result diagrams: 03/12/22 10:35 03/12/22 10:35 Orders (Tests/Meds): ED MEDICATIONS Generic Name Dose Route Start Last Admin Trade Name Freq PRN Reason Stop Dose Admin Fentanyl Citrate 25 mcg 03/12/22 10:59 Fentanyl 100mcg/2ml Vial IV 03/13/22 10:59 Q3MINP PRN Moderate to Severe Pain Fentanyl Citrate 50 mcg 03/12/22 10:59 Fentanyl 100mcg/2ml Vial IV 03/13/22 10:59 Q3MINP PRN Moderate to Severe Pain Fentanyl Citrate 25 mcg 03/12/22 10:59 Fentanyl 250mcg/5ml Vial IV 03/13/22 10:59 Q3MINP PRN Moderate to Severe Pain Fentanyl Citrate 50 mcg 03/12/22 10:59 Fentanyl 250mcg/5ml Vial IV 03/13/22 10:59 Q3MINP PRN Moderate to Severe Pain Flumazenil 0.2 mg 03/12/22 10:59 Flumazenil 0.1mg/Ml 5ml Vial IV 03/12/22 23:00 NEEDED PRN Sedation Heparin Sodium (Porcine) 10,000 unit 03/12/22 10:59 Heparin 1,000 Units/Ml 10ml Vial (Windows Migration Technician) IV 03/12/22 14:59 NEEDED PRN Emergency Box Investment Accountant Sodium Chloride 1,000 mls @ 25 mls/hr 03/12/22 11:00 Sod Chloride 0.9% 500ml Bag IV 03/13/22 10:59 .Q25H AUDREY Midazolam HCl 1 mg 03/12/22 10:59 Midazolam 2mg/2ml Vial IV 03/13/22 10:59 Q3MINP PRN Sedation Midazolam HCl 1 mg 03/12/22 10:59 Midazolam Hcl 1mg/1ml 5ml Vial IV 03/13/22 10:59 Q3MINP PRN Sedation Naloxone HCl 0.4 mg 03/12/22 10:59 Naloxone 0.4mg/Ml Vial IV 03/13/22 10:59 Q5MINP PRN Decreased Respirations Nitroglycerin 800 mcg 03/12/22 10:59 Nitroglycerin 800mcg/8ml Syr (Windows Migration Technician) IV 03/13/22 10:59 NEEDED PRN Emergency Box Investment Accountant Sodium Chloride 10 ml 03/12/22 10:39 Sodium Chloride 0.9% 10ml Flush Syringe IV 04/11/22 10:38 NEEDED PRN Maintain IV Site Discontinued Medications Generic Name Dose Route Start Last Admin Trade Name Freq PRN Reason Stop Dose Admin Aspirin 324 mg 03/12/22 10:39 03/12/22 10:43 Aspirin 81mg Chewable Tablet PO 03/12/22 10:40 324
--- NOTE | 2022-03-12 10:48 | ECG_ITS ---
APPROVED REPORT Exam: Resting ECG HR:55 bpm ECG Measurements Heart Rate 55 AXES PA 141 P 44 QRSd 85 QRS 42 QT 429 T 18 QTc 417 Conclusion SINUS BRADYCARDIA WITH SINUS ARRHYTHMIA LOW QRS VOLTAGE IN PRECORDIAL LEADS [QRS DEFLECTION < 1.0 mV IN CHEST LEADS] NONSPECIFIC T-WAVE ABNORMALITY BORDERLINE ECG UNCONFIRMED REPORT Electronically signed by : Michael Yanez MD 03/13/2022 21:10:47
--- NOTE | 2022-03-12 10:55 | PC.NURSE ---
Cardiac cath consent signed
[2022-03-12 11:02] LABS: Basophils # 0.1 K/mm3 (0-0.2); Basophils % 1.2 % (0.1-2.0); Eosinophils # 0.1 K/mm3 (0.0-0.4); Eosinophils % 1.4 % (0.1-12.0); Hematocrit 40.4 % (37.0-47.0); Hemoglobin 13.4 g/dL (12.2-16.2); Lymphocytes # 1.9 K/mm3 (0.7-4.5); Lymphocytes % 33.8 % (10-50); Mean Corpuscular HGB Conc 33.1 g/dL (31.8-35.4); Mean Corpuscular Volume 93.6 fl (81-99); Mean Platelet Volume 9.4 fl (7.4-10.4); Monocytes # 0.3 K/mm3 (0.1-1.0); Monocytes % 4.9 % (1.7-9.3); Neutrophils # 3.3 K/mm3 (1.8-7.8); Neutrophils % 58.7 % (37.0-80.0); Platelet Count 246 K/mm3 (142-424); Red Blood Count 4.32 M/mm3 (4.20-5.40); Red Cell Distribution Width 13.4 % (11.5-17.5); White Blood Count 5.7 K/mm3 (4.8-10.8)
[2022-03-12 11:06] LABS: Chloride 106 mmol/L (98-107); Potassium 3.6 mmoL/L (3.5-5.1); Sodium 140 mmol/L (136-145)
--- NOTE | 2022-03-12 11:06 | PC.NURSE ---
Bilateral wrist and groin have been clipped.
[2022-03-12 11:09] LABS: Anion Gap 8.6 mEq/L (5-15); Blood Urea Nitrogen 15 mg/dl (7-17); Calcium 9.1 mg/dl (8.4-10.2); Carbon Dioxide 29 mmol/L (22.0-30.0); Creatinine Clearance Estimated 141 mL/min (50-200); Estimated Glomerular Filt Rate 87 ml/min (>60); GFR (African American) 106 ML/MIN (>60); Glucose 103 mg/dl (74-100)
--- NOTE | 2022-03-12 11:21 | IR_ITS ---
APPROVED REPORT Patient Location: Emergent Clinical Informatics Manager: JERE Moore RT (R) PROCEDURES Left heart catheterization Left ventriculogram Selective coronary angiogram INDICATION Unstable angina, Abnormal Myoview with transient ischemic dilatation suggesting multivessel coronary artery disease, Multiple visits to the emergency room with typical angina pectoris Informed consent was obtained prior to the procedure. COMPLICATIONS None Estimated Blood Loss: Less than 10 mls TECHNIQUE One percent lidocaine used to anesthetize the right anterior aspect of the wrist. The right radial artery was accessed via the Seldinger technique. A 6 Azeri sheath was placed in the right radial artery. 2.5 mg of verapamil, 800 mcg of nitroglycerin, 1mg Lidocaine and 5000 U Heparin were given through the arterial sheath. The papa catheter was also used to perform left heart catheterization, left ventriculogram and selective coronary angiogram. At the end of the procedure the sheath was removed good hemostasis was achieved using Traclet band, patient was transferred to the postop holding area in stable condition. ANGIOGRAPHIC RESULTS The left main artery Normal The left anterior descending artery Normal The circumflex artery Normal The right coronary artery Dominant normal The RUSSO ventriculogram reveals Normal 65% The left ventricular end-diastolic pressure Severely elevated at 30 mmHg IMPRESSION Normal coronary arteries Normal ejection fraction Severely elevated LVEDP consistent with diastolic dysfunction which is etiology for patient's transient ischemic dilatation during stress testing. PLAN 1. Treatment of severe diastolic dysfunction which is etiology for patient's angina Electronically signed by : Francisco Saxena MD 03/12/2022 15:03:09
--- NOTE | 2022-03-12 11:26 | PC.NURSE ---
Calling .Renata Figueroa at this time
--- NOTE | 2022-03-12 11:26 | PC.NURSE ---
has been called. He is in a patient's, will call back.
[2022-03-12 11:36] LABS: Troponin I < 0.01 ng/ml (0.00-0.034)
--- NOTE | 2022-03-12 11:40 | PC.NURSE ---
Care Management has been notified of admission.
[2022-03-12 11:46] LABS: Coronavirus 19, PCR Not Detected (NotDetected); Influenza A, PCR Not Detected (NotDetected); Influenza B, PCR Not Detected (NotDetected)
--- NOTE | 2022-03-12 11:52 | PC.NURSE ---
House called and patient is going to room 212
--- NOTE | 2022-03-12 11:53 | PC.NURSE ---
1141 bed assignment requested, room 212. all staff notified
--- NOTE | 2022-03-12 11:59 | PC.NURSE ---
Patient is set up for a vaginal exam. Patient was given a warm blanket.
--- NOTE | 2022-03-12 12:09 | HMH.PHAINT ---
MEDICATION RECONCILIATION COMPLETED ON PATIENT USING EXTERNAL FILL HISTORY FROM PHARMACY. -LOWELL MOHR, TRACED
--- NOTE | 2022-03-12 12:51 | PC.NURSE ---
Attempted to call report to 2nd floor. Stated that Britni will return my call
--- NOTE | 2022-03-12 13:05 | PC.NURSE ---
Called report to Britni
[2022-03-12 14:35] LABS: Troponin I < 0.01 ng/ml (0.00-0.034)
--- NOTE | 2022-03-12 14:42 | PC.NURSE ---
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 Pt took all jewelry off and handed to her before going.
--- NOTE | 2022-03-12 14:58 | P.CONPHA_ITS ---
[facility] Pharmacy VTE Monitoring - Patient Demographics Admission date: 03/12/22 Report Date: 03/12/22 Time: 14:58 Allergies/Adverse Reactions: Patient Allergies No Known Allergies Allergy (Verified 03/01/22 09:32) Height: 1.68 m Weight: 96.7 kg Patient Problems: Current Active Problems Unstable angina (Acute) - VTE Risk Labs: VTE Related Lab Results Hgb 13.4 g/dL (12.2-16.2) 03/12/22 10:35 Hct 40.4 % (37.0-47.0) 03/12/22 10:35 Plt Count 246 K/mm3 (142-424) 03/12/22 10:35 BUN 15 mg/dl (7-17) 03/12/22 10:35 Creatinine 0.70 mg/dl (0.52-1.04) 03/12/22 10:35 Estimated Creat Clear 141 mL/min (50-200) 03/12/22 10:35 - Prophylaxis VTE Prophylaxis Ordered?: Yes Types of VTE Prophylaxis: TEDS Knee High Location of Applied Device: Bilateral Lower Extremeties
--- NOTE | 2022-03-12 15:21 | HMH.PNCARD ---
Subjective Date: 03/12/22 Time: 15:21 Principal diagnosis: UAP, Abnormal stress test Interval history: Patient was seen in the office today. Note from today below. ER follow up Continued chest tightness with right arm numbness Describing crescendo angina. Multiple visits/hospitalization over the last month. 02/23/22 ER chest pain 03/09/2022 ER chest pain BP and HR are too low to start antianginals. Intolerant to Imdur. Her insurance has denied cardiac cath. Abnormal cardiovascular function study with TID on imaging, concerning for balanced ischemia. Clinical evaluation and indication for diagnostic coronary angiography includes Suspected CAD Patient is describing chest pain symptom as Typical Angina Clinical risk factors of former smoker Myoview Stress test with imaging showing TID Would recommend patient be sent to ER for chest pain and then to cardiac cath today. Tearful during office visit today. Case reviewed with Dr. Saxena. PLAN: ER for unstable angina, plans for cardiac cath today. This document was scribed by nj Alma Hernandez, RN,BSN for Sherie Kessler APRN Exam Vital signs and Labs for Last 24 Hours: Temp Pulse Resp BP Pulse Ox 98.1 F 50 L 15 119/56 L 98 03/12/22 13:28 03/12/22 13:28 03/12/22 13:28 03/12/22 13:28 03/12/22 15:10 Laboratory Results - last 24 hr 03/12/22 10:35: WBC 5.7, RBC 4.32, Hgb 13.4, Hct 40.4, MCV 93.6, MCH 31.0, MCHC 33.1, RDW 13.4, Plt Count 246, MPV 9.4, Neut % (Auto) 58.7, Lymph % (Auto) 33.8, Collin % (Auto) 4.9, Eos % (Auto) 1.4, Baso % (Auto) 1.2, Neut # (Auto) 3.3, Lymph # (Auto) 1.9, Collin # (Auto) 0.3, Eos # (Auto) 0.1, Baso # (Auto) 0.1 03/12/22 10:35: Sodium 140, Potassium 3.6, Chloride 106, Carbon Dioxide 29, Anion Gap 8.6, BUN 15, Creatinine 0.70, Estimated Creat Clear 141, Estimated GFR 87, Est GFR ( Amer) 106, Glucose 103 H, Calcium 9.1, Troponin I < 0.01 03/12/22 11:36: SARS-CoV-2 (PCR) Not detected, Influenza A Untype (PCR) Not detected, Influenza Type B (PCR) Not detected 03/12/22 13:56: Troponin I < 0.01 I & O for Last 24 hours: Intake & Output 03/10/22 03/11/22 03/12/22 03/13/22 11:59 11:59 11:59 11:59 Weight 215 lb 213 lb 2.992 oz Progress Note: A&P (1) Unstable angina Status: Acute (2) Abnormal cardiovascular stress test Status: Acute (3) Diastolic dysfunction Status: Acute Assessment and Plan for All Diagnoses:: Cardiac catheter results below: ANGIOGRAPHIC RESULTS The left main artery Normal The left anterior descending artery Normal The circumflex artery Normal The right coronary artery Dominant normal The RUSSO ventriculogram reveals Normal 65% The left ventricular end-diastolic pressure Severely elevated at 30 mmHg IMPRESSION Normal coronary arteries Normal ejection fraction Severely elevated LVEDP consistent with diastolic dysfunction which is etiology for patient's transient ischemic dilatation during stress testing. PLAN 1. Treatment of severe diastolic dysfunction which is etiology for patient's angina Electronically signed by : Francisco Saxena MD 03/12/2022 15:03:09 Patient is stable from a cardiac standpoint for discharge home when Dr. Palencia is ready. With normal coronary arteries, will discontinue isosorbide. She may also stop aspirin therapy. Diuretic therapy and weight loss recommended for treatment of diastolic dysfunction. Follow-up in our office in 1 week.
--- NOTE | 2022-03-12 16:57 | PC.NURSE ---
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 Patient has maintained O2 sats 90% or higher on room air. Pt denies any new complaints, will continue to monitor.
--- NOTE | 2022-03-12 18:09 | HMH.HPDC ---
General - General Admission date:: 03/12/22 Discharge date: 03/12/22 *Admission Date: 03/12/22 *Chief complaint: Chest pain and tightness *History of present illness: 52-year-old white female who has had chest pain on and off for several months. It is atypical, has been worked up with an echocardiogram and stress test. Echocardiogram was negative with normal ejection fraction and normal diastolic parameters. Stress test showed no reversible ischemia but there was a question of transient global ischemia and this prompted cardiology evaluation with the diagnosis of unstable angina and admission for a heart cath. Of note, patient was placed on Prilosec last month and notes that this has improved her symptoms over the last couple of days. [facility] History I have reviewed the patient's past medical history: Yes Medical History: Reports:: Gastroesophageal Reflux Disease(GERD) Denies:: Cancer, Diabetes Mellitus Type 1, Diabetes Mellitus Type 2, MRSA *Have you ever received a pneumonia vaccine?: No *Have you received a flu vaccine this season?: Yes Other Surgeries: Yes: Amputation: No Fractures: No - *Social History Smoking Status: Current some day smoker Tobacco Type: cigarettes # Packs/Day (cigarettes): 1 Alcohol Intake: never Alcohol Intake Frequency:: holidays/special occasions only Substance Use Type: denies use *Occupational Status:: retired Housing: house Household Members: spouse, children *Travel in the last 8 weeks: None Family Hx:: Diabetes 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 Review of Systems - Review of Systems Review of systems:: pertinent systems reviewed and negative unless documented below Exam Vital signs and Labs for Last 24 Hours: Temp Pulse Resp BP Pulse Ox 98.1 F 44 L 15 100/55 L 93 L 03/12/22 13:28 03/12/22 17:25 03/12/22 17:25 03/12/22 17:25 03/12/22 17:25 Laboratory Results - last 24 hr 03/12/22 10:35: WBC 5.7, RBC 4.32, Hgb 13.4, Hct 40.4, MCV 93.6, MCH 31.0, MCHC 33.1, RDW 13.4, Plt Count 246, MPV 9.4, Neut % (Auto) 58.7, Lymph % (Auto) 33.8, Grundy % (Auto) 4.9, Eos % (Auto) 1.4, Baso % (Auto) 1.2, Neut # (Auto) 3.3, Lymph # (Auto) 1.9, Grundy # (Auto) 0.3, Eos # (Auto) 0.1, Baso # (Auto) 0.1 03/12/22 10:35: Sodium 140, Potassium 3.6, Chloride 106, Carbon Dioxide 29, Anion Gap 8.6, BUN 15, Creatinine 0.70, Estimated Creat Clear 141, Estimated GFR 87, Est GFR ( Amer) 106, Glucose 103 H, Calcium 9.1, Troponin I < 0.01 03/12/22 11:36: SARS-CoV-2 (PCR) Not detected, Influenza A Untype (PCR) Not detected, Influenza Type B (PCR) Not detected 03/12/22 13:56: Troponin I < 0.01 I & O for Last 24 hours: Intake & Output 03/10/22 03/11/22 03/12/22 03/13/22 11:59 11:59 11:59 11:59 Weight 215 lb 213 lb 2.992 oz - Constitutional no acute distress - *Routine HEENT Exam Head: Present: normocephalic Eye: Present: EOMI, PERRL ENT: Present: mucous membranes moist - *Routine Neck Exam Present: supple. Absent: lymphadenopathy - *Routine Respiratory Exam Present: CTA bilaterally - *Routine Cardiovascular Exam Present: RRR - *Routine Abdominal Exam Present: soft, normoactive bowel sounds. Absent: tenderness - *Routine Rectal Exam Rectal:: deferred - *Routine Genitalia Exam Genitalia:: deferred - *Routine Extremities Exam Absent: cyanosis, clubbing, edema - *Routine Skin Exam Present: warm. Absent: rash - *Routine Neurological Exam Present: alert, oriented X3 Hospital Course Hospital Course: Patient was admitted, subjected to left heart catheterization which was 100% normal with no evidence of any kind of angiographic obstruction of her coronary arteries. The comment was made about elevated end-diastolic pressure and severe diastolic dysfunction -of note echocardiogram does not bear this out. Patient is doing well post cath. I will discharge her home on twice daily Prilosec. No diuretics at this point given low blood pressure. I will see her i
--- NOTE | 2022-03-13 14:04 | CARE MANAGER ---
Contacted patient related to follow up from hospital discharge. Patient states that she didn't have any new medications and that she has an appointment scheduled with Dr. Yanez and then they will discuss starting a diuretic. I did notice that her Prilosec was documented and sent to the pharmacy as BID, but patient stated she was only taking QD. Verified with Dr. Yanez and told patient to take BID. Patient questioned when to take the dressing off from the heart cath. She states they told her today, but she wanted to be sure and I confirmed this with her.
== END 2022-03-12 19:00 | disposition home or self-care (01) ==
LOC: ER 11:37 → 2ND 12:03
PROVIDERS: Internal Medicine; Admitting Provider Internal Medicine Adolescent Medicine; Emergency Provider Emergency Medicine; Visit Provider Internal Medicine Adolescent Medicine
DX: E66.9 Obesity, unspecified (principal); I20.8 Other forms of angina pectoris; K21.9 Gastro-esophageal reflux disease without esophagitis; R94.39 Abnormal result of other cardiovascular function study; F17.210 Nicotine dependence, cigarettes, uncomplicated; Z20.822 Contact with and (suspected) exposure to COVID-19
CPT/HCPCS: 36415; 80048; 84484; 85025; 93005; 93458; 99152; C1725; C1769; C9803; G0378; J1644; Q9967; U0003; U0005

== ENCOUNTER → 2022-06-04 08:13 | Outpatient (CLI) | payer OTHER, SELFPAY ==
--- NOTE | 2022-06-04 08:16 | MM_ITS ---
PROCEDURE INFORMATION: Exam: MG Bilateral Screening 3D Mammography Exam date and time: 06/04/2022 8:17 AM Age: 52 years old Clinical indication: Screening examination TECHNIQUE: Imaging protocol: Bilateral Screening tomosynthesis and 2D mammography including computer-aided detection (CAD) when performed. COMPARISON: 1. MG DIG MAMM-SCREEN ELLEN 03/16/2019 9:21 AM 2. MG SCBI MM Dig screening mamm BI w/CAD 03/13/2018 8:43 AM 3. MG DMDB DIG MAMM-DX ELLEN 01/05/2014 1:08 PM 4. MG DMSB DIG MAMM-SCREEN ELLEN 08/10/2013 2:28 PM FINDINGS: MAMMOGRAPHY: Breast composition: There are scattered areas of fibroglandular density. Mass: None. Architectural distortion: No new or suspicious architectural distortion. Calcifications: No new or suspicious calcifications are present Asymmetric density: No new or suspicious asymmetric density is present Skin thickening: None. Axillary adenopathy: None. IMPRESSION: No mammographic evidence of malignancy. Recommend annual screening mammography unless otherwise clinically indicated. ASSESSMENT: BI-RADS category 1: Negative
== END ==
PROVIDERS: PCP Internal Medicine Adolescent Medicine; Visit Provider Internal Medicine Adolescent Medicine
DX: Z12.31 Encounter for screening mammogram for malignant neoplasm of breast (principal)
CPT/HCPCS: 77063; 77067

== ENCOUNTER → 2022-06-23 12:17 | Outpatient (CLI) | payer OTHER, SELFPAY | PROVIDERS: PCP Internal Medicine Adolescent Medicine; Visit Provider Surgery | DX: Z01.812 Encounter for preprocedural laboratory examination (principal); Z20.822 Contact with and (suspected) exposure to COVID-19; Z12.11 Encounter for screening for malignant neoplasm of colon | CPT/HCPCS: C9803; U0003; U0005 ==

== ENCOUNTER 2022-06-26 07:19 | Day surgery (SDC) | payer OTHER, SELFPAY ==
[2022-06-22 08:34] VITALS: BMI 33.4
[2022-06-26 07:35] VITALS: BP 123/80; PULSE 69; RESP 16; TEMP 36.6; O2SAT 100
--- NOTE | 2022-06-26 08:13 | HMH.ANESCL ---
[facility] Anesthesia Checklist - Patient Identification Patient Identification: Arm Band - Structural Data Admitted From: Home Planned Operative Procedure/s: Colonosocpy Consent for Planned Operative Procedure(s) Verified: Yes - NPO Status Verified Time NPO: 06:00 (Prep) - Airway Assessment C-Spine Mobility Assessed: Yes TMJ Mobility Assessed: Yes Dentition: Dentures-good fit - Neurological Assessment Level of Consciousness: Awake Hx Seizures: No Numbness or tingling in extremities: No - Anesthesia Plan Anesthesia Risk discussed: Yes Anesthesia Plan: Verified ASA Class: II Anesthesia Type: [facility] History I have reviewed the patient's past medical history: Yes Medical History: Reports:: Anxiety, Depression, Gastroesophageal Reflux Disease(GERD) Denies:: Cancer, Diabetes Mellitus Type 1, Diabetes Mellitus Type 2, Internal Pacemaker, MRSA, Seizures *Have you ever received a pneumonia vaccine?: No *Have you received a flu vaccine this season?: Yes Anesthesia experience/problems:: None Other Surgeries: Yes: Cardiac Catheterization, . 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
[2022-06-26 08:21] VITALS: O2SAT 100
[2022-06-26 08:58] VITALS: BP 99/48; PULSE 91; RESP 12; TEMP 36.4; O2SAT 93
--- NOTE | 2022-06-26 09:00 | HMH.SCOPE ---
- Procedure: Date: 06/26/22 Patient Date of :: 1970 Procedure Performed:: Colonoscopy Indications:: Screening Performing Provider:: Primo Bloom MD Referring Provider:: . Sedation:: Monitored anesthesia care Procedure:: After informed consent was obtained the patient was taken to the endoscopy suite. Sedation ensued after the patient was transferred to the left lateral decubitus position. Pulse, blood pressure, and oxygen saturation were monitored throughout the procedure. Digital rectal exam revealed no significant abnormality. The colonoscope was placed in position. The entire colon was evaluated. The colonoscope was carefully removed and the patient was transferred to recovery in stable condition. Please see findings and specimens below for detail. Findings:: Hemorrhoidal tags Sigmoid diverticulosis Bowel preparation moderate with exceedingly large volume of fluid throughout colon (visualization somewhat improved after large-volume suctioning) Specimens:: None Recommendations:: Repeat colonoscopy in approximately 3 years secondary to limitations of visualization Complications:: No immediate Estimated blood obtained (mL): 0
[2022-06-26 09:08] VITALS: BP 103/57; PULSE 73; RESP 16; O2SAT 94
[2022-06-26 09:18] VITALS: BP 100/59; PULSE 61; RESP 16; O2SAT 97
[2022-06-26 09:28] VITALS: BP 108/67; PULSE 56; RESP 16; TEMP 36.4; O2SAT 99
== END 2022-06-26 09:30 | disposition home or self-care (01) ==
LOC: OUTP 07:20
PROVIDERS: PCP Internal Medicine Adolescent Medicine; Visit Provider Surgery
PROC: 0DJD8ZZ Inspection of Lower Intestinal Tract, Via Natural or Artificial Opening Endoscopic (ICD-10-PCS; CPT 45378; principal; 2022-06-26 08:30)
DX: Z12.11 Encounter for screening for malignant neoplasm of colon (principal); K57.30 Diverticulosis of large intestine without perforation or abscess without bleeding; K21.9 Gastro-esophageal reflux disease without esophagitis; Z79.899 Other long term (current) drug therapy
CPT/HCPCS: 45378; J2704

== ENCOUNTER 2023-06-28 15:25 | Day surgery (SDC) | payer OTHER, SELFPAY ==
[2023-06-28] VITALS (12 sets, daily range): BP systolic 108–137; BP diastolic 60–76; PULSE 62–97; RESP 16–20; TEMP 36.6–36.9; O2SAT 93–98; BMI 34.3
[2023-06-28 15:52] LABS: Microscopic, Urine URINE MICROSCOPIC (MICROSCOPIC)
--- NOTE | 2023-06-28 15:52 | CT_ITS ---
PROCEDURE INFORMATION: Exam: CT Abdomen And Pelvis With Contrast Exam date and time: 06/28/2023 4:59 PM Age: 53 years old Clinical indication: Abdominal pain; Flank; Right lower quadrant (rlq); Additional info: Rlq pain TECHNIQUE: Imaging protocol: Computed tomography of the abdomen and pelvis with contrast. Radiation optimization: All CT scans at this facility use at least one of these dose optimization techniques: automated exposure control; mA and/or kV adjustment per patient size (includes targeted exams where dose is matched to clinical indication); or iterative reconstruction. Contrast material: ISOVUE; Contrast volume: 75 ml; Contrast route: IV; REPORTING DATA: Count of CT and Cardiac NM exams in prior 12 months: This patient has received 0 known CTs and 0 known cardiac nuclear medicine studies in the 12 months prior to the current study. COMPARISON: No relevant prior studies available. FINDINGS: Lungs: There is patchy atelectasis at the lung bases. Liver: Normal. No mass. Gallbladder and bile ducts: There is cholelithiasis within an otherwise normal gallbladder. Pancreas: Normal. No ductal dilation. Spleen: Normal. No splenomegaly. Adrenal glands: Normal. No mass. Kidneys and ureters: Normal. No hydronephrosis. Stomach and bowel: There is a duodenal diverticulum. Appendix: The appendix is distended with periappendiceal stranding and wall thickening. Intraperitoneal space: Unremarkable. No free air. No significant fluid collection. Vasculature: Unremarkable. No abdominal aortic aneurysm. Lymph nodes: Unremarkable. No enlarged lymph nodes. Urinary bladder: Unremarkable as visualized. Reproductive: Unremarkable as visualized. Bones/joints: Unremarkable. No acute fracture. Soft tissues: There is a fat containing left inguinal hernia. IMPRESSION: Findings compatible with acute appendicitis.
[2023-06-28 15:54] LABS: Appearance,Urine CLEAR (Clear); Blood, Urine Negative (Negative); Color,Urine DK YELLOW (Yellow); Glucose,Urine (UA) Negative (Negative); Ketones,Urine Negative (Negative); Leukocyte Esterase,Urine Negative (Negative); Nitrate,Urine Negative (Negative); Protein,Urine TRACE (Negative); Specific Gravity, Urine >= 1.030 (1.005-1.030); Urobilinogen,Urine 0.2 EU/dl (0.2)
[2023-06-28 16:00] LABS: Basophils % 0.5 % (0.1-2.0); Bilirubin,Urine 1+ (Negative); Eosinophils # 0.1 K/mm3 (0.0-0.4); Eosinophils % 1.3 % (0.1-12.0); Hematocrit 41.2 % (37.0-47.0); Hemoglobin 13.6 g/dL (12.2-16.2); Lymphocytes # 1.4 K/mm3 (0.7-4.5); Lymphocytes % 25.4 % (10-50); Mean Corpuscular Hemoglobin 29.7 pg (27.0-31.2); Mean Corpuscular Volume 89.8 fl (81-99); Mean Platelet Volume 9.3 fl (7.4-10.4); Monocytes # 0.3 K/mm3 (0.1-1.0); Monocytes % 5.9 % (1.7-9.3); Neutrophils # 3.6 K/mm3 (1.8-7.8); Neutrophils % 66.9 % (37.0-80.0); Platelet Count 214 K/mm3 (142-424); Red Blood Count 4.59 M/mm3 (4.20-5.40); Red Cell Distribution Width 13.7 % (11.5-17.5); White Blood Count 5.4 K/mm3 (4.8-10.8)
[2023-06-28 16:01] LABS: Chloride 105 mmol/L (98-107); Sodium 141 mmol/L (136-145)
[2023-06-28 16:02] LABS: Potassium 3.4 mmoL/L (3.5-5.1)
[2023-06-28 16:04] LABS: Alanine Aminotransferase 24 U/L (12-78); Alkaline Phosphatase 113 U/L (38-126); Aspartate Amino Transferase 32 U/L (14-36); Bilirubin,Total 0.6 mg/dl (0.2-1.3); Blood Urea Nitrogen 12 mg/dl (7-17); Creatinine Clearance Estimated 108 mL/min (50-200); Estimated Glomerular Filt Rate 65 ml/min (>60); GFR (African American) 79 ML/MIN (>60)
[2023-06-28 16:05] LABS: Albumin/Globulin Ratio 1.3 (1.1-1.8); Anion Gap 11.4 mEq/L (5-15); Calcium 9.4 mg/dl (8.4-10.2); Carbon Dioxide 28 mmol/L (22.0-30.0); Glucose 110 mg/dl (74-100)
[2023-06-28 16:11] LABS: Bacteria,Urine 2+ /lpf; WBC,Urine Occasional #/hpf (0-3)
--- NOTE | 2023-06-28 16:36 | HMH.EDGENADL ---
Discharge Plan Disposition Patient Disposition: Admitted Condition: Good Clinical Impressions Clinical Impression: Acute appendicitis Qualifiers: Acute appendicitis type: with localized peritonitis Appendicitis gangrene presence: unspecified whether gangrene present Appendicitis perforation presence: without perforation Appendicitis abscess presence: without abscess Qualified Code(s): K35.30 - Acute appendicitis with localized peritonitis, without perforation or gangrene Discharge ED Provider: Karen Rodriguez General Adult HPI General Chief complaint: Abdominal Pain Stated complaint: abd pain Time Seen by Provider: 06/28/23 15:43 Mode of Arrival: Ambulatory Limitations: No Limitations Description of Symptoms (Recalled from ER Triage Doc. by RN): PT C/O RLQ PAIN THAT STARTED ON SATURDAY, PT REPORTS CHILLS AND NAUSEA. NO DOCUMENTED FEVER. SEEN BY PCP TODAY, SENT FOR FURTHER EVALUATION. PT DENIES EMESIS. NORMAL BM YESTERDAY History of Present Illness HPI narrative: This patient is a 53-year-old female with history of obesity and GERD presenting to the emergency department for evaluation with concern for right lower quadrant abdominal pain. She states she was seen by her PCP today and sent here for evaluation with concern that she could have appendicitis. She states that the pain started on Saturday, and she had a low-grade fever that night. She had chills and nausea since then with very poor oral intake secondary to poor appetite. She denies any recent fever, vomiting, changes in bowel movements, dysuria, hematuria, abnormal vaginal discharge, or other concerns. The pain is in her right lower quadrant and is nonradiating. Nothing seems to make it better or worse. Related Data Home Medications Medication Instructions Recorded Confirmed escitalopram oxalate 10 mg tablet 10 mg PO DAILY Depression 04/10/22 09/17/22 Previous Rx's Medication Instructions Recorded omeprazole 40 mg capsule,delayed 40 mg PO BID GERD 90 days #180 caps 03/12/22 release amoxicillin 500 mg-potassium 1 tab PO TID #21 tabs 06/28/23 clavulanate 125 mg tablet (Augmentin) hydrocodone 5 mg-acetaminophen 325 1 tab PO Q6H PRN post-op pain #17 06/28/23 mg tablet tabs Allergies Allergy/AdvReac Type Severity Reaction Status Date / Time No Known Allergies Allergy Verified 09/17/22 10:56 [facility] Disclaimer: The information contained in this section may have been updated after the patient was seen, as this information can be updated by other users. Medical History Abnormal cardiovascular stress test Atypical angina Chest pain Elevated left ventricular end-diastolic pressure (LVEDP) Surgical History History of colonoscopy Social History Smoking Status: Never smoker alcohol intake: never substance use type: denies use current occupational status: unemployed Travel in the last 8 weeks: None household members: spouse housing: house current occupational exposures/hazards: No caffeine: Yes ROS Obtained: Yes All systems reviewed & no additional complaints except as documented Physical Exam General General appearance: alert and in no apparent distress Head Head exam: atraumatic and normocephalic Eye Eye exam: Present normal appearance, PERRL and EOMI ENT ENT exam: Present normal exam, normal oropharynx, mucous membranes moist and normal external ear exam Neck Neck exam: Present normal inspection, full ROM and trachea midline; Absent tenderness Chest Chest inspection: Present normal inspection and symmetric chest wall rise; Absent tenderness Respiratory Respiratory exam: Present normal lung sounds bilaterally; Absent respiratory distress, wheezes, stridor or accessory muscle use Cardiovascular Cardiovascular exam: Present regular rate and normal rhyth
--- NOTE | 2023-06-28 17:05 | PC.NURSE ---
PT TO CT
--- NOTE | 2023-06-28 17:25 | PC.NURSE ---
rounded on pt, pt sitting up in bed, visitor at BS. Call button clipped to bed sheet in reach of pt. Pt states no needs at this time
--- NOTE | 2023-06-28 17:38 | PC.NURSE ---
vrad on with Dr Rodriguez, general surgery paged
--- NOTE | 2023-06-28 17:39 | PC.NURSE ---
DR URIARTE AT BEDSIDE TO UPDATE PT AND FAMILY
--- NOTE | 2023-06-28 17:41 | PC.NURSE ---
DR URIARTE SPEAKING WITH DR PURVIS
--- NOTE | 2023-06-28 17:43 | PC.NURSE ---
Dr Bloom said to call OR team in, power house control room operator advised
--- NOTE | 2023-06-28 17:55 | PC.NURSE ---
CONSENT SIGNED AT THIS TIME
--- NOTE | 2023-06-28 18:04 | PC.NURSE ---
DR PURVIS AT BEDSIDE
--- NOTE | 2023-06-28 18:12 | EXP.ANES.CKL ---
[facility] Disclaimer: The information contained in this section may have been updated after the patient was seen, as this information can be updated by other users. Medical History Abnormal cardiovascular stress test Atypical angina Chest pain Elevated left ventricular end-diastolic pressure (LVEDP) Surgical History History of colonoscopy Social History Smoking Status: Never smoker alcohol intake: never substance use type: denies use current occupational status: unemployed Travel in the last 8 weeks: None household members: spouse housing: house current occupational exposures/hazards: No caffeine: Yes [facility] Anesthesia Checklist Patient Identification Patient Identification: Arm Band and Verbal (Name & ) Structural Data Admitted From: Emergency Dept Planned Operative Procedure/s: Lap. appendectomy Consent for Planned Operative Procedure(s) Verified: Yes NPO Status Verified Time NPO: 14:00 Chart Verification Results Verified: CBC and BMP Additional verifications Anesthesia Reactions: No Airway Assessment Mallampati Score:: Class II C-Spine Mobility Assessed: Yes TMJ Mobility Assessed: Yes Dentition: Dentures-good fit Neurological Assessment Level of Consciousness: Awake Hx Seizures: No Numbness or tingling in extremities: No Anesthesia Plan Anesthesia Risk discussed: Yes Anesthesia Plan: Verified ASA Class: II (E) Anesthesia Type: General (With RSI)
--- NOTE | 2023-06-28 18:31 | PC.NURSE ---
anesthesia and circulating nurse at bedside.
--- NOTE | 2023-06-28 18:32 | PC.NURSE ---
pt to surgery
--- NOTE | 2023-06-28 19:59 | EXP.OP.NOTE ---
Date of procedure: 06/28/23 Pre-op Diagnosis:: Appendicitis Post-op Diagnosis:: Suppurative appendicitis Procedure performed:: Laparoscopic appendectomy Surgeon:: Primo Bloom MD RESIDENTIAL PROPERTY TAX APPRAISER:: Marychuy Chavez Anesthesia: ISAURA Estimated blood loss (mL): 15 Operative findings:: Inflamed/enlarged appendix with suppurative changes Operative note:: After informed consent was obtained the patient was taken to the operating room and placed in the supine position. General anesthesia was induced and her abdomen was prepped and draped in a sterile fashion. After infiltration with local anesthetic an infraumbilical incision was made. A Veress needle was placed in position. The abdomen was insufflated. A 12 mm optical trocar was placed in position. Under direct visualization a 5 mm trocar was placed in the suprapubic position and an additional 5 mm trocar was placed in the left lower quadrant. The appendix was carefully elevated. Severe inflammatory changes and enlargement noted. Overlying suppuration was seen; however, no evidence of perforation was noted. No evidence of purulence/abscess was noted. The mesoappendix was taken with harmonic bakari. An Endopath 45 stapling device was used to transect the appendix at its base. The appendix was placed in a retrieval bag and removed through the infraumbilical trocar site. The right lower quadrant was thoroughly irrigated. No sign of bleeding or injury noted. Fascia at the infraumbilical trocar site was reapproximated with 0 Ethibond. The remaining trocars were removed. All wounds were irrigated and skin was closed with 4-0 Monocryl in a mattress fashion to facilitate hemostasis. Dressings were applied and the patient was transferred to recovery in stable condition. Condition: stable Disposition: PACU Specimens:: Appendix Complications:: No immediate
--- NOTE | 2023-07-01 07:18 | P.PNANES_ITS ---
[facility] Anesthesia Record Part II Anesthesia Record Part II Discharge Time: 20:35 Destination: Surgical Day Care (OP Surgery) PACU nurse assessment reviewed?: Yes Patient Condition:: Good Anesthesia Complications:: None Swallowing reflex intact?: Yes Airway Patency: Patent Cyanosis?: No Blood Pressure: 118/60 SaO2: 93 Respiratory Rate: 16 Pulse Rate: 72 Temperature: 97.8 F Mental Status: Alert & Oriented Pain level:: 0 Nausea and/or vomitting:: None Intake, IV Amount: 0 Hydration: Adequate
[2023-07-01 07:19] VITALS: BP 118/60; PULSE 72; RESP 16; TEMP 36.6; O2SAT 93
== END 2023-06-28 21:11 | disposition home or self-care (01) ==
LOC: ER 17:55 → SDC 18:33
PROVIDERS: Emergency Provider Emergency Medicine; PCP Nurse Practitioner Family; Visit Provider Surgery
PROC: 0DTJ4ZZ Resection of Appendix, Percutaneous Endoscopic Approach (ICD-10-PCS; CPT 44970; principal; 2023-06-28 19:00)
DX: K35.80 Unspecified acute appendicitis (principal)
CPT/HCPCS: 44970; 74177; 80053; 81001; 85025; 87086; J0131; J0330; J0696; J2405; Q9967

== ENCOUNTER → 2023-08-09 13:09 | Outpatient (CLI) | payer OTHER, SELFPAY ==
--- NOTE | 2023-08-09 13:25 | ECG_ITS ---
APPROVED REPORT Exam: Resting ECG HR:64 bpm ECG Measurements Heart Rate 64 AXES NH 133 P 50 QRSd 86 QRS 69 QT 400 T 29 QTc 410 Conclusion SINUS RHYTHM NORMAL ECG UNCONFIRMED REPORT Electronically signed by : Michael Yanez MD 08/10/2023 07:57:29
[2023-08-09 14:34] LABS: Basophils % 0.7 % (0.1-2.0); Eosinophils # 0.1 K/mm3 (0.0-0.4); Hematocrit 42.7 % (37.0-47.0); Hemoglobin 13.6 g/dL (12.2-16.2); Lymphocytes # 1.8 K/mm3 (0.7-4.5); Lymphocytes % 35.5 % (10-50); Mean Corpuscular Hemoglobin 29.2 pg (27.0-31.2); Mean Corpuscular Volume 91.3 fl (81-99); Mean Platelet Volume 9.2 fl (7.4-10.4); Monocytes # 0.3 K/mm3 (0.1-1.0); Monocytes % 5.1 % (1.7-9.3); Neutrophils # 2.9 K/mm3 (1.8-7.8); Neutrophils % 57.7 % (37.0-80.0); Platelet Count 217 K/mm3 (142-424); Red Blood Count 4.67 M/mm3 (4.20-5.40); Red Cell Distribution Width 13.7 % (11.5-17.5)
[2023-08-09 15:34] LABS: Alanine Aminotransferase 20 U/L (12-78); Albumin Level 3.9 g/dl (3.5-5.0); Albumin/Globulin Ratio 1.6 (1.1-1.8); Alkaline Phosphatase 95 U/L (38-126); Anion Gap 9.2 mEq/L (5-15); Aspartate Amino Transferase 26 U/L (14-36); Bilirubin,Total 0.4 mg/dl (0.2-1.3); Blood Urea Nitrogen 13 mg/dl (7-17); Calcium 9.3 mg/dl (8.4-10.2); Carbon Dioxide 29 mmol/L (22.0-30.0); Chloride 107 mmol/L (98-107); Estimated Glomerular Filt Rate 74 ml/min (>60); GFR (African American) 90 ML/MIN (>60); Globulin 2.4 g/dL (1.3-3.2); Glucose 96 mg/dl (74-100); Potassium 4.2 mmoL/L (3.5-5.1); Sodium 141 mmol/L (136-145); Total Protein,Serum 6.3 g/dl (6.3-8.2)
== END ==
PROVIDERS: PCP Internal Medicine Adolescent Medicine; Visit Provider Nurse Practitioner
DX: Z01.818 Encounter for other preprocedural examination (principal)
CPT/HCPCS: 36415; 80053; 85025; 93005

== ENCOUNTER 2023-08-28 09:02 | Day surgery (SDC) | payer OTHER, SELFPAY ==
[2023-08-26 13:13] VITALS: BMI 34.0
[2023-08-28] VITALS (10 sets, daily range): BP systolic 111–119; BP diastolic 63–73; PULSE 53–74; RESP 16–18; TEMP 36.2–36.6; O2SAT 93–98
--- NOTE | 2023-08-28 12:12 | EXP.OP.NOTE ---
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 Post-op Diagnosis:: Right true vocal cord mass Procedure performed:: Microlaryngoscopy and excisional biopsy of right true vocal cord mass Surgeon:: Hector Leo MD ELECTRICAL MAINTENANCE SUPERVISOR:: Remington Lui Anesthesia: GETA Estimated blood loss (mL): 0 Operative findings:: 8 to 9 mm pedunculated mass from the midportion of the right true vocal cord extending to the anterior third of the right true vocal cord but not involving the anterior commissure Operative note:: The patient was brought to the operating room and after adequate general anesthesia the mouth was draped in the usual sterile fashion and the upper alveolus protected with a plastic guard. Then an anterior commissure laryngoscope was employed to perform rigid direct laryngoscopy. Base of tongue, epiglottis, vallecula, aryepiglottic folds, arytenoids, postcricoid area, piriform sinuses, and false vocal cords were all normal. She had an obvious large pedunculated mass from the mid third of her right true vocal cord. The laryngoscope was positioned and then suspended and then a 0 degree rigid endoscope was used to photograph the true vocal cords and right vocal cord mass. And the operating microscope was brought into position and using microcup forceps and microscissors the mass was excised including the underlying mucosa while sparing the submucosa and vocalis. The anterior commissure was not violated. The mass was sent for permanent section analysis. Hemostasis was established with topical adrenaline and lidocaine on a cottonoid pledget. A post excision photograph was taken. The laryngoscope was then removed and the procedure concluded. All counts correct and blood loss was minimal and she was sent to recovery in stable condition. Condition: stable Disposition: PACU Complications:: No complication
--- NOTE | 2023-08-28 12:20 | P.PNANES_ITS ---
[facility] Disclaimer: The information contained in this section may have been updated after the patient was seen, as this information can be updated by other users. Medical History Abnormal cardiovascular stress test Atypical angina Chest pain Elevated left ventricular end-diastolic pressure (LVEDP) Hoarseness Lesion of true vocal cord Preoperative examination Surgical History History of appendectomy History of colonoscopy Family History Other No significant family history Social History (Updated 08/28/23 @ 09:52 by Jamia Smith RN) Smoking Status: Former smoker tobacco type: cigarettes packs per day: 1 alcohol intake: never substance use type: denies use current occupational status: retired Travel in the last 8 weeks: None household members: spouse housing: house current occupational exposures/hazards: No caffeine: Yes [facility] Anesthesia Checklist Patient Identification Patient Identification: Arm Band Structural Data Admitted From: Home Planned Operative Procedure/s: Microlaryngoscopy, Excision of Right True Vocal Cord Lesion Consent for Planned Operative Procedure(s) Verified: Yes Verified Documents: Surgical Consent and History and Physical NPO Status Verified Time NPO: 00:00 Additional verifications Anesthesia Reactions: No Hx Blood Transfusions: No Blood Transfusion Reaction: No Airway Assessment Mallampati Score:: Class II C-Spine Mobility Assessed: Yes TMJ Mobility Assessed: Yes Dentition: Good Dentition Neurological Assessment Level of Consciousness: Awake and Alert Anesthesia Plan Anesthesia Risk discussed: Yes Anesthesia Plan: Verified ASA Class: II Anesthesia Type: General
--- NOTE | 2023-08-28 12:21 | P.PNANES_ITS ---
[facility] Anesthesia Record Part I Anesthesia Record I Intake, IV Amount: 600 Hydration: Adequate Estimated blood loss (mL): 0 Urine output (mL): 0 Blood Products used (#): none Blood Pressure: 118/69 SaO2: 93 Pulse Rate: 66 Airway Patency: Patent Respiratory Rate: 16 Temperature: 97.6 F Patient is:: Drowsy and Stable Stable to PACU at:: 12:20
--- NOTE | 2023-08-29 13:04 | EXP.ANES.II ---
[facility] Anesthesia Record Part II Anesthesia Record Part II Discharge Time: 12:50 Destination: Surgical Day Care (OP Surgery) PACU nurse assessment reviewed?: Yes Patient Condition:: Good Anesthesia Complications:: None Swallowing reflex intact?: Yes Airway Patency: Patent Cyanosis?: No Blood Pressure: 119/73 SaO2: 96 Respiratory Rate: 18 Pulse Rate: 58 Temperature: 97.1 F Mental Status: Alert & Oriented Pain level:: 0 Nausea and/or vomitting:: None Intake, IV Amount: 0 Hydration: Adequate
[2023-08-29 13:05] VITALS: BP 119/73; PULSE 58; RESP 18; TEMP 36.2; O2SAT 96
== END 2023-08-28 13:25 | disposition home or self-care (01) ==
PROVIDERS: PCP Internal Medicine Adolescent Medicine; Visit Provider Otolaryngology
PROC: 0CJS8ZZ Inspection of Larynx, Via Natural or Artificial Opening Endoscopic (ICD-10-PCS; CPT 31536; principal; 2023-08-28 10:45)
DX: J38.3 Other diseases of vocal cords (principal)
CPT/HCPCS: 31536; J2405

== ENCOUNTER → 2023-10-07 16:40 | Outpatient (CLI) | payer OTHER, SELFPAY ==
--- NOTE | 2023-10-07 16:42 | MM_ITS ---
PROCEDURE INFORMATION: Exam: MG Bilateral Screening 3D Mammography Exam date and time: 10/07/2023 4:36 PM Age: 53 years old Clinical indication: Screening examination TECHNIQUE: Imaging protocol: Bilateral Screening tomosynthesis and 2D mammography including computer-aided detection (CAD) when performed. COMPARISON: 1. MG MM DIG SCREENING MAMM BI W/CAD 06/04/2022 8:17 AM 2. MG DIG MAMM-SCREEN ELLEN 03/16/2019 9:21 AM FINDINGS: MAMMOGRAPHY: Breast composition: The breasts are almost entirely fatty. Mass: None. Architectural distortion: None. Calcifications: No suspicious calcifications. Asymmetric density: None. Skin thickening: None. Axillary adenopathy: None. IMPRESSION: No mammographic evidence of malignancy. Annual screening is recommended unless otherwise clinically indicated. ASSESSMENT: BI-RADS Category 1: Negative
== END ==
PROVIDERS: PCP Internal Medicine Adolescent Medicine; Visit Provider Internal Medicine Adolescent Medicine
DX: Z12.31 Encounter for screening mammogram for malignant neoplasm of breast (principal)
CPT/HCPCS: 77063; 77067

== ENCOUNTER 2024-04-28 10:07 | Outpatient (CLI) | payer BC, SELFPAY ==
--- NOTE | 2024-04-28 10:10 | US_ITS ---
FINAL REPORT CLINICAL HISTORY: LUMP IN NECK COMPARISON: None FINDINGS: Directed ultrasound of the posterior right neck demonstrates superficial benign lymph node measuring 10 x 10 x 4 mm. No other lesions identified. IMPRESSION: Superficial benign lymph node at the area of interest. Reviewed, Interpreted and Dictated by Aga Rodriguez MD Transcribed by Amarilis Tejada Authenticated and . [facility]
== END 2024-04-28 23:59 | disposition home or self-care (01) ==
LOC: RAD 10:07
PROVIDERS: PCP Nurse Practitioner Family; Visit Provider Nurse Practitioner Family
DX: R22.1 Localized swelling, mass and lump, neck (principal)
CPT/HCPCS: 76536

== ENCOUNTER 2025-03-22 17:05 | Outpatient (CLI) | payer BC, SELFPAY ==
--- NOTE | 2025-03-22 17:00 | MM_ITS ---
PROCEDURE INFORMATION: Exam: MG Bilateral Screening 3D Mammography Exam date and time: 03/22/2025 5:11 PM Age: 55 years old Clinical indication: Screening examination. TECHNIQUE: Imaging protocol: Bilateral Screening tomosynthesis and 2D mammography including computer-aided detection (CAD) when performed. COMPARISON: 1. MG MM DIG SCREENING MAMM BI W/CAD 10/07/2023 4:36 PM 2. MG MM DIG SCREENING MAMM BI W/CAD 06/04/2022 8:17 AM FINDINGS: MAMMOGRAPHY: Breast composition: There are scattered areas of fibroglandular density. Mass: None. Architectural distortion: None. Calcifications: No suspicious calcifications. Asymmetric density: None. Skin thickening: None. Axillary adenopathy: None. IMPRESSION: No mammographic evidence of malignancy. Annual screening is recommended unless otherwise clinically indicated. ASSESSMENT: BI-RADS Category 1: Negative.
== END 2025-03-22 23:59 | disposition home or self-care (01) ==
LOC: RAD 17:06
PROVIDERS: PCP Nurse Practitioner Family; Referring Provider Obstetrics & Gynecology; Visit Provider Obstetrics & Gynecology
DX: Z12.31 Encounter for screening mammogram for malignant neoplasm of breast (principal)
CPT/HCPCS: 77063; 77067

== ENCOUNTER 2025-04-09 14:05 | Outpatient (CLI) | payer BC, SELFPAY ==
--- OUTSIDE RECORDS SUMMARY | 2025-04-09 14:09 | XMS_ITS | Data Portability ---
Author Organization [facility] Address [address] [place] [address] Assessment No assessment recorded. Plan of Treatment Reminders Order Date Submit Date Provider Last Modified By Organization Details Last Modified Time Details Appointments Establish ed Patient 2024 01:00P M Randal Holman APRN Not available Not available Not available Nurse Visit 2024 08:00A M Nurse-Sherman del real Not available Not available Not available Lab rapid flu (A+B) 2024 025 [facility], [address] [place] [address], [id number], 12/31/2024 16:58:35 rapid SARS CoV + SARS CoV 2 Ag, QL IA, respirato ry specimen 2024 025 [facility], [address] [place] [address], [phone], 12/31/2024 16:58:35 Referral None recorded. Procedures None recorded. Surgeries None recorded. Imaging None recorded. Medication Orders prednison e 20 mg tablet 2024 025 [facility], [address] [place] [address], [facility] [address], [address], 04/09/2025 13:20:26 doxycycli ne hyclate 100 mg capsule 2024 025 [facility], [address] [place] [address], [facility] [address], [address], 04/09/2025 13:20:27 Zithromax Z-Cas 250 mg tablet 2024 025 [facility], [address], [address], [place], [address], 01/07/2025 13:16:38 dexametha sone sodium phosphate 4 mg/mL injection solution 2024 025 [facility] Not available 01/07/2025 12:59:20 Patient TargetsNo targets recorded. Patient InstructionsNo instructions recorded. Reason for Referral None Reported. Results Created Date Observation Date Name Description Value Unit Range Abnormal Flag Note LastModifiedBy Organization Detail LastModifiedTime 12/31/1912/31/2024 rapid SARS CoV + SARS CoV 2 Ag, QL IA, respi rator y speci men SARS CoV antigen Negati ve Not Available [address], [address], 12/31/2024 16:24:24 12/31/19 25 12/31/2024 rapid flu (A+B) Flu negati ve Not Available [address], [address], 12/31/2024 16:24:20 12/31/19 25 12/31/2024 rapid flu (A+B) Type Both A & B Not Available [address], [address], 12/31/2024 16:24:20 Result Notes None recorded. Problems Name Problem SNOMED Code Status Onset Date Resolution Date Notes Provider Name and Address Organization Details Recorded Time Anxiety 25478963 Active 2024 Kasie black, [place] - [facility] 15:44:16 Gastroesophage al reflux disease 773797221 Active 2024 Kasie Lopez null, [place] - [facility] 15:44:21 Problem Notes None recorded. Procedures Surgical History Date Name Laterality Status Provider Name and Address Organization Details Recorded Time section completed Kasie Stephens [place] - [facility] 12/31/2024 16:19:39 Appendectomy completed Kasie Hailees [place] - [facility] 12/31/2024 16:19:43 excision of nodule of larynx completed Kasie Stears [place] - [facility] 2024 16:19:54 kidney stone analysis completed Kasie Stears [place] - [facility] 12/31/2024 16:20:04 Imaging Results None recorded. Procedure Notes None recorded. Medical Equipment None Reported. Allergies No known drug allergies Medications Name Sig Start Date Stop Date Status Note LastModified by Organization Details LastModified Time promethazin e-DM 6.25 mg-15 mg/5 mL oral syrup 12/31 completed Not Available Not Available Not Available doxycycline hyclate 100 mg capsule Take 1 capsule twice a day by oral route for 7 days. 04/09 completed Not Available Not Available Not Available azithromyci n 250 mg tablet TAKE 2 TABLETS (500 MG) BY ORAL ROUTE ONCE DAILY FOR 1 DAY THEN 1 TABLET (250 MG) BY ORAL ROUTE ONCE DAILY FOR 4 DAYS 01/07 completed Not Available Not Available Not Available prednisone 20 mg tablet Take 1 tablet twice a day by oral route for 5 days. 04/09 completed Not Available Not Available Not Available omeprazole 40 mg capsule,del ayed release Take 1 capsule every day by oral route. 2024 active Not Available Not Available Not Avai lable meloxicam 7.5 mg tablet 12/31 completed Not Available Not Available Not Available sertraline 25 mg tablet 12/31 completed Not Available Not Available Not Available dexamethaso ne sodium phosphate 4 mg/mL injection solution Inject 1 mL twice a day by intramusc ular route. 01/07 completed Not Available Not Available Not Available sertraline 50 mg tablet 12/31 completed Not Available Not Available Not Available bupropion HCl XL 150 mg 24 hr tablet, extended release 12/31 completed Not Available Not Available Not Available nitrofurant oin monohydrate /macrocryst als 100 mg capsule 12/31 completed Not Available Not Available Not Available semaglutide (weight loss) 0.5 mg/0.5 mL subcutaneou s pen injector Inject 0.5 mg every week by subcutane ous route. 2024 active Not Available Not Available Not Avai lable Vitals Date Recorded Body weight Body mass index (BMI) Body height Body temperature Heart rate Oxygen saturation Oxygen saturation in Arterial blood by Pulse oximetry Respiratory rate Systolic blood pressure Diastolic blood pressure Provider Name and Address Organization Details Last Updated DateTime 5 65092.2 2 g 29.2 kg/m2 167.64 cm 99.3 [degF] 92 /min 97 % 97 % 18 /min 118 mm[Hg] 80 mm[Hg] Kasie Lopez [place] - [facility] 16:16:12 Date Recorded Body height Body mass index (BMI) Body weight Body temperature Heart rate Oxygen saturation Oxygen saturation in Arterial blood by Pulse oximetry Respiratory rate Systolic blood pressure Diastolic blood pressure Provider Name and Address Organization Details Last Updated DateTime 167.64 cm 28.7 kg/m2 92109.4 4 g 97.4 [degF] 85 /min 97 % 97 % 18 /min 118 mm[Hg] 72 mm[Hg] Gertrudis Pinedo [place] - [facility] 5 13:05:06 Date Recorded Body height Body mass index (BMI) Body weight Body temperature Oxygen saturation Oxygen saturation in Arterial blood by Pulse oximetry Respiratory rate Heart rate Systolic blood pressure Diastolic blood pressure Provider Name and Address Organization Details Last Updated DateTime 167.64 cm 30 kg/m2 69654.1 8 g 98 [degF] 98 % 98 % 20 /min 70 /min 118 mm[Hg] 68 mm[Hg] Gertrudis Pinedo [place] - [facility] 13:16:08 Social History Question Answer Notes LastModified by Organizat ion Details LastModified Time Tobacco Smoking Status Former Smoker Kasie black [place] - [facility] 12/31/2024 16:18:55 Do You Have An Advance Directive? No Information not available 12/31/2024 Are You Blind Or Do You Have Difficulty Seeing? No Information not available 12/31/2024 What Is Your Level Of Caffeine Consumption? Occasional Information not available 12/31/2024 Are You Deaf Or Do You Have Serious Difficulty Hearing? No Information not available 12/31/2024 What Type Of Diet Are You Following? REGULAR Information not available 12/31/2024 What Is The Highest Grade Or Level Of School You Have Completed Or The Highest Degree You Have Received? [id number] Information not available 12/31/2024 Have There Been Any Changes To Your Family Or Social Situation? No Information not available 12/31/2024 What Is The Fluoride Status Of Your Home? Unknown Information not available 12/31/2024 When Did You Quit Smoking? 1-5yearssincel astcigarette Information not available 12/31/2024 Do You Have A Medical Power Of Air Brake Rigger? No Information not available 12/31/2024 What Was The Date Of Your Most Recent Tobacco Screening? 12/31/2024 Information not available 12/31/2024 What Is Your Current Pack Years? 30ormorepackye ars Smoked Off And On All The Years Never Smoked All The Time Information not available 12/31/2024 What Is Your Relationship Status? Information not available 12/31/2024 Do You Have Smoke And Carbon Monoxide Detectors In Your Home? Yes Information not available 12/31/2024 At What Age Did You Start Smoking Tobacco? 18 Information not available 12/31/2024 How Much Tobacco Do You Smoke? 0.25 PPD Information not available 12/31/2024 Has Tobacco Cessation Counseling Been Provided? No Information not available 12/31/2024 Do You Have Difficulty Walking Or Climbing Stairs? No Information not available 12/31/2024 Sex: Female Functional Status Question Answer Note LastModified by Organizat ion Details LastModified Time How many times per week do you consume alcohol? 1-2 times per week Information not available 12/31/2024 Do you use any illicit or recreational drugs? No Information not available 12/31/2024 Do you or have you ever used any other forms of tobacco or nicotine? No Information not available 12/31/2024 What is your level of alcohol consumption? Occasional Information not available 12/31/2024 Are you currently employed? No Information not available 12/31/2024 Do you have transportation difficulties? No Information not available 12/31/2024 Are you able to walk? YESWOREST Information not available 12/31/2024 Do you have difficulty doing errands alone? No Information not available 12/31/2024 Are you able to care for yourself? Yes Information n ot available 12/31/2024 Do you have difficulty dressing or bathing? No Information not available 12/31/2024 What is your exercise level? None Information not available 12/31/2024 Mental Status Question Answer Note LastModified by Organizat ion Details LastModified Time Do you feel stressed (tense, restless, nervous, or anxious, or unable to sleep at night)? [id number] Information not available 12/31/2024 Do you have difficulty concentrating, remembering or making decisions? No Information no t available 12/31/2024 Family History Relationship Description Onset Age of this Age Resolved Age Notes LastModified by Organization Details LastModified Time Father No current problems or disability bstears Not available 12/31 16:17:09 Mother No current problems or disability bstears Not available 12/31 16:17:09 Medical History No medical history recorded. Gynecological History Statement/Question Response Menses Monthly N Date of Last Colonoscopy Date of Last Mammogram LMP Unknown Most Recent Bone Density Obstetrics History GPAL:G 0 P 0 0 0 0 Immunizations Vaccine Type Date Status Note Provider Nam e and Address Organization Details Recorded Time Influenza, split virus, quadrivalent, preservative 9 completed Gertrudis Pinedo null, [place] - [facility] 12/04/2024 14:53:54 COVID-19 vaccine, vector-nr, rS-Ad26, PF, 0.5 mL 1 completed Gertrudis Pinedo null, [place] - [facility] 12/04/2024 14:53:54 Tdap 2 completed Gertrudis Pinedo null, [place] - [facility] 12/04/2024 14:53:54 Influenza, split virus, trivalent, preservative 5 completed Gertrudis Pinedo null, [place] - [facility] 12/04/2024 14:57:59 Past Encounters Encounter ID Performer Location Encounter Start Date Encounter Closed Date Diagnosis/Indication Diagnosis SNOMED-CT Code Diagnosis ICD10 Code Diagnosis Note [id number] [place] [id number] 1 12/04/2024 14:05:27 12/04/2024 15:29:03 Influenza vaccine needed 3660680739 106 Z23 [id number] [facility] [place] [id number] 1 12/31/2024 15:36:34 12/31/2024 16:59:07 Acute maxillary sinusitis 99193822 J01.00 if no improvemen t or worsening [id number] [facility] [address] 01/07/2025 12:50:18 01/07/2025 13:17:51 Acute bronchitis 88665712 J20.9 Acute maxi llary sinusitis 18434610 J01.00 if no improvemen t or worsening return [id number] [facility] [address] [address] 04/09/2025 12:45:04 04/09/2025 13:34:29 Health Concerns Section Related Observation LastModified by Organization Detai ls LastModified Time None Recorded Concern Status LastModified by Organization Details LastModified Time None Recorded Advance Directives Directive N: Payers Insurance Date Sequence Insurance Name Policy Number Policy Munoz Covered Member ID Munoz Member ID Guarantor Name 04/09/2025 1 [place] [id number] 1 Tj Almaraz [id number] Lori Almaraz Notes Date Note Type Note Provider Name and Address Organization Details Recorded Time 12/04/2024 text/html 54 yr old female presents for a influenza vaccine. Gertrudis Pinedo [place], [place] - [facility] 12/04/2024 14:58:05 12/31/2024 text/html 54 year old female who presents to the office today with concerns of cough, congestion, green phelgm, teeth hurt, pressure in eyes,face feels sore like a sinus infectionfever, chills last week Randal Holman, CHRIS [address], [place], [address], [place] - [facility] 12/31/2024 17:00:04 01/07/2025 text/html 54 yr old female presents for continued illness from last visit. She completed a z pack and had a steroid injection but isn't any better. under her breasts is sore and her back hurts, chest hurts at times. Randal Holman APRN [address], [place], [address], [place] - [facility] 01/07/2025 14:02:37 OBGyn Episode No OBEpisode recorded.
--- NOTE | 2025-04-09 14:38 | XR_ITS ---
FINAL REPORT CLINICAL HISTORY: PAIN COMPARISON: None FINDINGS: AP, oblique and lateral views of the left foot were obtained. There is no acute fracture or dislocation. The joint spaces are preserved. Soft tissues are unremarkable. IMPRESSION: No acute osseous abnormality of the left foot. Reviewed, Interpreted and Dictated by Ashanti Cortes MD Transcribed by Irene Lackey Authenticated and [facility]
== END 2025-04-09 23:59 | disposition home or self-care (01) ==
PROVIDERS: PCP Nurse Practitioner Family; Visit Provider Nurse Practitioner Family
DX: M79.672 Pain in left foot (principal)
CPT/HCPCS: 73630

== ENCOUNTER 2025-06-30 09:45 | Day surgery (SDC) | payer BC, SELFPAY ==
[2025-06-25 11:31] VITALS: BMI 30.7
--- NOTE | 2025-06-29 17:11 | P.HP_ITS ---
History of Present Illness *Admission Date: 06/30/25 *History of present illness: Mrs. Almaraz is a 55-year-old female who is here for screening colonoscopy. She did have an attempted colonoscopy in June 2022 (Primo Bloom M.D.) but had poor bowel preparation and he recommended 3-year surveillance interval. The examination is deemed medically necessary for screening colonoscopy. The patient has been seen, interviewed and examined prior to the procedure by both myself and the anesthesia provider. [facility] Disclaimer: The information contained in this section may have been updated after the patient was seen, as this information can be updated by other users. Medical History History of gastroesophageal reflux (GERD) Lesion of true vocal cord Preoperative examination Hoarseness Elevated left ventricular end-diastolic pressure (LVEDP) Abnormal cardiovascular stress test Atypical angina Chest pain Surgical History History of appendectomy History of colonoscopy Family History Other No significant family history Social History (Updated 06/30/25 @ 10:25 by Melissa Britt RN) Smoking Status: Former smoker tobacco type: cigarettes packs per day: 1 alcohol intake: never substance use type: denies use current occupational status: retired Travel in the last 8 weeks?: Inside the [place] household members: spouse housing: house current occupational exposures/hazards: No caffeine: Yes (spark and soft drinks) Have you lived/traveled outside US in past 30 days?: No Contact w/someone who lives/traveled outside US past 30 days?: No Exposure to someone with infectious disease in past 14 days?: No Do you have a fever (greater than 100.4 F or 38 C)?: No Have you tested positive for COVID-19?: No Exposed to someone with COVID-19 in past 14 days?: No Do you have a sore throat?: No Do you have a cough?: No Do you have any weakness?: No Do you have any diarrhea?: No Are you experiencing any unusual bleeding?: No Do you have any muscle aches/pain?: No Do you have any abdominal pain?: No Are you experiencing loss of taste or smell?: No Other Medical History Have you received the Flu Vaccine for this season: Yes Have you received the Pneumonia Vaccine: Yes Review of Systems Review of Systems Review of systems (narrative): Negative *Cardiovascular Comments: Negative *Gastrointestinal Comments: Negative *Genitourinary Comments: Negative *Musculoskeletal Comments: Negative *Neurologic Comments: Negative Meds Home Medications and Allergies Home Medications ?Medication ?Instructions ?Recorded ?Confirmed ?Type conjugated estrogens 0.625 mg/gram 0.625 mg vaginal DA MARIA LUISA #30 grams 03/09/25 06/25/25 Rx vaginal cream (Premarin) semaglutide 0.5 mg/0.1 mL 0.25 mg SQ WEEKLY 03/09/25 0 06/25/25 History subcutaneous syringe sodium,potassium,mag sulfates 17.5 See Rx Instructions PO .COMPLEX 06/16/25 Rx gram-3.13 gram-1.6 gram oral soln #354 mL (Suprep Bowel Prep Kit) pantoprazole 20 mg tablet,delayed 20 mg PO DAILY 06/2506/25/25 History release New Prescriptions to Start Prescriptions: Allergies Allergy/AdvReac Type Severity Reaction Status Date / Time No Known Allergies Allergy Verified 04/15/25 12:53 Exam *Routine HEENT Exam Head: Present normocephalic Eye: Present EOMI and PERRL ENT: Present mucous membranes moist *Routine Neck Exam Neck: Present supple *Routine Respiratory Exam Respiratory: Present CTA bilaterally *Routine Cardiovascular Exam Cardiovascular: Present RRR *Routine Abdominal Exam Abdominal: Present soft and normoactive bowel sounds; Absent tenderness *Routine Rectal Exam Rectal:: deferred *Routine Genitalia Exam Genitalia:: deferred *Routine Extremities Exam Extremities: Absent cyanosis, clubbing or edema *Routine Skin Exam Skin: Present warm; Absent rash *Routine Neurological Exam Neurological: Present alert and oriented X3 Assessment and Plan *Assessment and plan (1) Screening for malignant neoplasm of colon: Status: Acute Category: Medical Code(s): Z12.11 - Encounter for screening for malignant neoplasm of colon Plan A/P: 1. Screening for colon cancer is the preprocedural diagnosis. The patient will be anesthetized/sedated using MAC sedation. The patient has been seen and examined. Cardiac and lung assessment prior to the examination is stable. Proceed with planned screening colonoscopy.
--- NOTE | 2025-06-30 10:16 | EXP.ANES.CKL ---
[facility] Disclaimer: The information contained in this section may have been updated after the patient was seen, as this information can be updated by other users. Medical History History of gastroesophageal reflux (GERD) Lesion of true vocal cord Preoperative examination Hoarseness Elevated left ventricular end-diastolic pressure (LVEDP) Abnormal cardiovascular stress test Atypical angina Chest pain Surgical History History of appendectomy History of colonoscopy Family History Other No significant family history Social History Smoking Status: Former smoker tobacco type: cigarettes packs per day: 1 alcohol intake: never substance use type: denies use current occupational status: retired Travel in the last 8 weeks?: None household members: spouse housing: house current occupational exposures/hazards: No caffeine: Yes Have you lived/traveled outside US in past 30 days?: No Contact w/someone who lives/traveled outside US past 30 days?: No Exposure to someone with infectious disease in past 14 days?: No Do you have a fever (greater than 100.4 F or 38 C)?: No Have you tested positive for COVID-19?: No Exposed to someone with COVID-19 in past 14 days?: No Do you have a sore throat?: No Do you have a cough?: No Do you have any weakness?: No Do you have any diarrhea?: No Are you experiencing any unusual bleeding?: No Do you have any muscle aches/pain?: No Do you have any abdominal pain?: No Are you experiencing loss of taste or smell?: No [facility] Anesthesia Checklist Patient Identification Patient Identification: Arm Band and Verbal (Name & ) Structural Data Admitted From: Home Planned Operative Procedure/s: colonscopy Consent for Planned Operative Procedure(s) Verified: Yes Verified Documents: Surgical Consent and History and Physical NPO Status Verified Time NPO: 00:00 Additional verifications Anesthesia Reactions: No Hx Blood Transfusions: No Blood Transfusion Reaction: No Previous Colonoscopy: Yes Airway Assessment Mallampati Score:: Class II Dentition: Good Dentition Neurological Assessment Level of Consciousness: Awake, Alert and Appropriate Hx Seizures: No Numbness or tingling in extremities: No Anesthesia Plan Anesthesia Risk discussed: Yes Anesthesia Plan: Verified ASA Class: II Anesthesia Type: MAC
[2025-06-30 10:25] VITALS: BP 122/71; PULSE 70; RESP 18; TEMP 36.3; O2SAT 98; BMI 30.7
[2025-06-30 10:28] VITALS: BP 122/71; PULSE 70; RESP 18; TEMP 36.3; O2SAT 98
--- NOTE | 2025-06-30 11:03 | P.PCN_ITS ---
[facility] Procedure Note Date: 06/30/25 Time: 11:34 Procedure Note:: Colonoscopy Procedure Report: Colonoscopy with cold biopsy Endoscopist: Mor Rogers II, MD Referring physician: CORNELIUS Snyder Date of Procedure: June 30, 2025 Equipment: Olympus [id number] adult colonoscope Sedation: MAC sedation Indication: Mrs. Almaraz is a 55-year-old female who is here for screening colonoscopy. She did have an attempted colonoscopy in June 2022 (Primo Bloom M.D.) but had poor bowel preparation and he recommended 3-year surveillance interval. The patient reports no abdominal pain, weight loss, change in her bowel habits or rectal bleeding. She reports no family history of colon cancer. Procedure: Prior to the procedure, a history and physical exam was performed, and patient's medications and allergies were reviewed. The risks, benefits and alternatives of the sedation and procedure were discussed with the patient. All questions were answered and informed consent was obtained. The patient was brought to the procedure room. Patient identification and proposed procedure were verified by the physician and the nurse. The patient was placed in a left lateral decubitus position and the scope was passed under direct vision. Throughout the procedure, the patient's blood pressure, pulse, and oxygen saturations were monitored continuously. The colonoscopy was accomplished without difficulty. The patient tolerated the procedure well. Findings: On digital rectal examination there was normal rectal tone. There were no external hemorrhoids. The colonoscope was introduced through the anal canal to the rectum and advanced to the cecum. The ileocecal valve and appendiceal orifice were identified. The scope was advanced a short distance into the ileum which appeared grossly normal. The scope was then withdrawn into the colon. There was a single 2 to 3 mm polyp in the cecum removed via cold biopsy. The remaining cecum, ascending and transverse colon and mucosa were grossly normal. There were scattered diverticuli throughout the descending and sigmoid colon ( LEFT colon). The rectum itself was normal. Upon retroflexion within the rectum there were grade 1-2 internal hemorrhoids. The preparation was excellent throughout with [facility] Preparation Score of 9. The cecal time was 10 minutes. Impression: 1. Diminutive 2 to 3 mm cecal polyp 2. Left-sided diverticulosis 3. Grade 1-2 internal hemorrhoids Plan: I will follow-up the polyp histology and recommend repeat screening/surveillance colonoscopy again in 7 to 10 years based upon pathology. I would recommend psyllium fiber supplementation on a daily maintenance basis.
[2025-06-30 11:37] VITALS: BP 107/58; PULSE 71; RESP 15; TEMP 36.3; O2SAT 92
[2025-06-30 11:47] VITALS: BP 99/64; PULSE 67; RESP 17; TEMP 36.3; O2SAT 98
[2025-06-30 11:57] VITALS: BP 107/61; PULSE 63; RESP 17; TEMP 36.3; O2SAT 98
[2025-06-30 12:07] VITALS: BP 102/62; PULSE 56; RESP 18; TEMP 36.3; O2SAT 97
== END 2025-06-30 12:35 | disposition home or self-care (01) ==
PROVIDERS: PCP Nurse Practitioner Family; Visit Provider Internal Medicine Gastroenterology
PROC: 0DJD8ZZ Inspection of Lower Intestinal Tract, Via Natural or Artificial Opening Endoscopic (ICD-10-PCS; CPT 45378; principal; 2025-06-30 11:30)
DX: Z12.11 Encounter for screening for malignant neoplasm of colon (principal); D12.0 Benign neoplasm of cecum; K57.30 Diverticulosis of large intestine without perforation or abscess without bleeding; K64.0 First degree hemorrhoids; K64.1 Second degree hemorrhoids; K21.9 Gastro-esophageal reflux disease without esophagitis; Z90.49 Acquired absence of other specified parts of digestive tract; Z87.891 Personal history of nicotine dependence; Z79.890 Hormone replacement therapy; Z79.85 Long-term (current) use of injectable non-insulin antidiabetic drugs; Z79.899 Other long term (current) drug therapy
CPT/HCPCS: 45380; J2003; J2704